=== PATIENT | male | born 1960 | race African-American/Black ===

== ENCOUNTER 2016-09-09 00:34 | Inpatient (IN) | payer OTHER ==
[~2016-09-09] VITALS: Ht 167.6 cm; Wt 60.7 kg
[2016-09-09] VITALS (9 sets, daily range): BP systolic 104–151; BP diastolic 70–87; PULSE 83–130; TEMP 36.4–37.7; O2SAT 92–100; Ht 167.6 cm; Wt 60.7 kg
[~2016-09-09 00:34] MED LIST: BND25 PO; CITA20TA9 PO; CLC100X PO; CLOZ100T PO; MILK OF MAGNESIA PO; TRIF5TAB PO; [UNRECOGNIZED DRUG - CODE] PO
[2016-09-09] MEDS ORDERED: SODIUM CHLORIDE 0.9% 1000ML 500 ML IV STA (00:50)
[2016-09-09] MEDS ORDERED: LORAZEPAM 2 MG/ML 1 ML VIAL IV STA (00:50)
[2016-09-09] MEDS ORDERED: SODIUM CHLORIDE 0.9% 1000ML 1,000 ML IV STA ×2 (00:50→05:21)
--- NOTE | 2016-09-09 01:10 | EMERGENCY ROOM VISIT NOTE ---
History Report prepared by Matthew: Geoff Hall Under the Supervision of: Dr. Watson Pulliam M.D. First contact with patient: 00:44 Chief Complaint: FALL Stated Complaint: FALL/ALTERED MENTAL STATUS History of Present Illness The patient is a 56 year old male who presents to the Emergency Room by EMS with complaints of an constant altered mental status beginning shortly prior to arrival. Per nursing staff, the patient is a prisoner, and was alone in an observation cell today. She states that he was left for awhile and found to be unresponsive upon returning. She notes that the patient was restarted on Clozaril today after being off of it for 9 days. Per care home security, the patient is not completely oriented at baseline, but is currently worse than usual. HPI limited secondary to altered mental status. Source of History: nursing staff, other (care home security) History Limited By: AMS Onset: Shortly prior to arrival Quality: other (altered mental status) Timing: constant Review of Systems ROS unobtainable secondary to altered mental status. Past Medical & Surgical Medical Problems: (1) Encephalopathy Past medical history unobtainable secondary to altered mental status. Family History Family history unobtainable secondary to altered mental status. Social History Smoking Status: Current Every Day Smoker Housing Status: other (incarcerated) Occupation Status: other (incarcerated) Current/Historical Medications Scheduled Clozapine (Clozaril), 100 MG PO BID Clozapine (Clozapine), 200 MG PO BID Clozapine (Clozapine), 200 MG PO HS Clozapine (Clozapine), 200 MG PO DAILY @ 0630 Clozapine (Clozapine), 400 MG PO HS Docusate Sodium (Docusate Sodium), 100 MG PO BID Perphenazine (Trilafon), 16 MG PO HS Propranolol (Inderal), 10 MG PO BID Allergies Coded Allergies: Benztropine (Verified Allergy, Intermediate, muscle spasms, 04/07/16) Haloperidol (Verified Allergy, Unknown, UNKNOWN, 09/09/16) Physical Exam Vital Signs Date Time Temp Pulse Resp B/P Pulse Ox O2 Delivery O2 Flow Rate FiO2 09/09/16 04:09 108 26 98 Diffusion Mask 6.0 09/09/16 02:57 118 18 108/71 94 Room Air 09/09/16 01:43 119 16 136/74 Room Air 09/09/16 00:58 121 09/09/16 00:54 96 Room Air 09/09/16 00:49 36.4 124 22 100/55 96 Room Air Physical Exam GENERAL: Patient is in no acute distress. HEENT: No acute trauma, normocephalic atraumatic, mucous membranes are dry, no nasal congestion, no scleral icterus. Pupils are pinpoint but equal bilaterally. NECK: No stridor, no adenopathy, no meningismus, trachea is midline. LUNGS: Clear to auscultation bilaterally, no wheeze, no rhonchi, breath sounds equal. HEART: Tachycardic with a regular rhythm. No murmurs. ABDOMEN: Soft, nontender, bowel sounds positive, no hernias, no peritonitis. EXTREMITIES: No pedal edema or cellulitis. Both hands are swollen but no gross deformity. Bandages on the fingers consistent with older injuries. No cellulitis. No apparent pain with palpation of either hand. NEUROLOGIC: Confused. Rambling speech. No speech slur. Moving all extremities equally. Seems agitated. SKIN: No rash, no jaundice, no diaphoresis. Medical Decision & Procedures ER Provider Diagnostic Interpretation: CT results per statrad and my review. CT HEAD: Comparison: 04/08/2016. No acute intracranial abnormality. The sinuses are patent. No acute osseous abnormality. CT EXTREMITY LEFT UPPER: Acute impacted minimally displaced fracture through the distal metaphysis of the fifth metacarpal. No evidence of intra-articular extension. No other fractures identified. Degenerative changes of the carpal bones. Three View Right Hand X-ray interpreted by me: No obvious fracture or bony dislocation. Three View Left Hand X-ray interpreted by me: Acute fracture of the distal fifth metacarpal and a possible fracture to the bones of the ulnar wrist. One View Chest X-ray interpreted by me: No CHF, cardiomegaly or pneumonia. No mediastinal widening. Left Wrist X-ray interpreted by me: Ulnar aspect of the wrist has some abnormalities consistent with possible fracture. May be a chip-like fracture off of the proximal fifth metacarpal. Because of the look of the film, a CT scan has been ordered. Laboratory Results 09/09/16 01:05 Red Blood Count 4.82, Mean Corpuscular Volume 85.9, Mean Corpuscular Hemoglobin 29.5, Mean Corpuscular Hemoglobin Concent 34.3, Mean Platelet Volume 10.5, Neutrophils (%) (Auto) 78.2, Lymphocytes (%) (Auto) 17.2, Monocytes (%) (Auto) 4.2, Eosinophils (%) (Auto) 0.0, Basophils (%) (Auto) 0.1, Neutrophils # (Auto) 9.25, Lymphocytes # (Auto) 2.04, Monocytes # (Auto) 0.50, Eosinophils # (Auto) 0.00, Basophils # (Auto) 0.01 09/09/16 01:05 Test 09/09/16 01:05 09/09/16 02:35 09/09/16 03:29 White Blood Count 11.83 K/uL (4.8-10.8) Red Blood Count 4.82 M/uL (4.7-6.1) Hemoglobin 14.2 g/dL (14.0-18.0) Hematocrit 41.4 % (42-52) Mean Corpuscular Volume 85.9 fL (80-100) Mean Corpuscular Hemoglobin 29.5 pg (25-34) Mean Corpuscular Hemoglobin Concent 34.3 g/dl (32-36) Platelet Count 189 K/uL (130-400) Mean Platelet Volume 10.5 fL (7.4-10.4) Neutrophils (%) (Auto) 78.2 % Lymphocytes (%) (Auto) 17.2 % Monocytes (%) (Auto) 4.2 % Eosinophils (%) (Auto) 0.0 % Basophils (%) (Auto) 0.1 % Neutrophils # (Auto) 9.25 K/uL (1.4-6.5) Lymphocytes # (Auto) 2.04 K/uL (1.2-3.4) Monocytes # (Auto) 0.50 K/uL (0.11-0.59) Eosinophils # (Auto) 0.00 K/uL (0-0.5) Basophils # (Auto) 0.01 K/uL (0-0.2) RDW Standard Deviation 44.4 fL (36.4-46.3) RDW Coefficient of Variation 14.1 % (11.5-14.5) Immature Granulocyte % (Auto) 0.3 % Immature Granulocyte # (Auto) 0.03 K/uL (0.00-0.02) Red Blood Cell Morphology Unremarkable Prothrombin Time 10.7 SECONDS (9.0-12.0) Prothromb Time International Ratio 1.0 (0.9-1.1) Activated Partial Thromboplast Time 30.7 SECONDS (21.0-31.0) Partial Thromboplastin Ratio 1.2 Anion Gap 18.0 mmol/L (3-11) Estimated GFR () 102.2 Estimated GFR (Non- 88.1 BUN/Creatinine Ratio 48.7 (10-20) Calcium Level 8.7 mg/dl (8.5-10.1) Total Bilirubin 0.9 mg/dl (0.2-1) Aspartate Amino Transf (AST/SGOT) 227 U/L (15-37) Alanine Aminotransferase (ALT/SGPT) 104 U/L (12-78) Alkaline Phosphatase 67 U/L (45-117) Ammonia 22.0 umol/L (11-32) Total Creatine Kinase 7103 U/L (39-308) Troponin I < 0.015 ng/ml (0-0.045) Total Protein 7.5 gm/dl (6.4-8.2) Albumin 3.6 gm/dl (3.4-5.0) Globulin 3.9 gm/dl (2.5-4.0) Albumin/Globulin Ratio 0.9 (0.9-2) Thyroid Stimulating Hormone (TSH) 0.363 uIu/ml (0.300-4.500) Urine Color YELLOW Urine Appearance CLEAR (CLEAR) Urine pH 5.0 (4.5-7.5) Urine Specific [place] 1.016 (1.000-1.030) Urine Protein NEG (NEG) Urine Glucose (UA) NEG (NEG) Urine Ketones 4+ (NEG) Urine Occult Blood 2+ (NEG) Urine Nitrite NEG (NEG) Urine Bilirubin NEG (NEG) Urine Urobilinogen NEG (NEG) Urine Leukocyte Esterase NEG (NEG) Urine WBC (Auto) 1-5 /hpf (0-5) Urine RBC (Auto) 0-4 /hpf (0-4) Urine Hyaline Casts (Auto) 1-5 /lpf (0-5) Urine Epithelial Cells (Auto) 5-10 /lpf (0-5) Urine Bacteria (Auto) NEG (NEG) Urine Opiates Screen NEG (NEG) Urine Methadone, Qualitative NEG (NEG) Urine Barbiturates NEG (NEG) Urine Phencyclidine (PCP) Level NEG (NEG) Ur Amphetamine/Methamphetamine NEG (NEG) MDMA (Ecstasy) Screen NEG (NEG) Urine Benzodiazepines Screen NEG (NEG) Urine Cocaine Metabolite NEG (NEG) Urine Marijuana (THC) NEG (NEG) Salicylates Level 2.3 mg/dl (2.8-20) Acetaminophen Level < 2 ug/ml (10-30) Ethyl Alcohol mg/dL < 3.0 mg/dl (0-3) Laboratory results reviewed by me. Medications Administered Medications (Trade) Dose Ordered Sig/Coty Route Start Time Stop Time Status Last Admin Dose Admin Sodium Chloride 500 ml @ 999 mls/hr Q31M STAT IV 09/09/16 00:50 09/09/16 01:20 DC 09/09/16 00:50 999 MLS/HR Sodium Chloride (Nss 1000ml) 1,000 ml @ 125 mls/hr Q8H STAT IV 09/09/16 00:50 09/09/16 03:16 DC 09/09/16 01:23 125 MLS/HR Lorazepam (Ativan Inj) 2 mg NOW STAT IV 09/09/16 00:50 09/09/16 00:53 DC 09/09/16 01:22 2 MG ECG Indication: altered mental status Rate (beats per minute): 124 Rhythm: other (not able to be interpreted due to significant artifact) Findings: no ectopy, other (Significant artifact. No obvious ischemia) ED Course 0044: The patient was evaluated in room B9. A complete history and physical exam was performed. 0050: Ordered Ativan Inj 2 mg IV, NSS 1000 mL @ 125 mL/hr IV, NSS 500 mL @ 999 mL/hr IV. 0257: Ordered NSS 500 mL @ 999 mL/hr IV. 0300: Upon reexamination the patient is resting comfortably. I discussed results and treatment plan with the patient. The patient will be evaluated for further management. Medical Decision The patient is a 56 year old male who presents to the ED with complaints of an altered mental status. Differential diagnoses considered include medication reaction, stroke, psychosis, dehydration, infection, electrolyte imbalance, intracranial bleeding, as well as other etiologies were considered. There is a mild leukocytosis which could be consistent with infection or with the stress of his current situation. No anemia. Renal panel testing shows some dehydration, no significant electrolyte abnormality requiring correction. There were some liver enzyme elevations, the bilirubin was not elevated. The patient appears to be in a euthyroid state. Ammonia level is not elevated. Total CK is elevated indicating some mild rhabdomyolysis. There is no coagulopathy. Urine tox is negative. Urinalysis shows dehydration, no signs of infection. Blood culture is pending. Films of both hands were done, there is a distal left fifth metacarpal fracture which is acute. No fracture of the right hand. The left wrist showed some findings along the ulnar aspect, they may have been nonacute findings but I was concerned enough to order a CT scan, the findings of the left wrist appear chronic. Chest film does not show pneumonia or CHF. Brain CT shows no acute bleed or mass effect. EKG shows a tachycardia, I could not interpret the rhythm as there was too much artifact. Cardiac enzyme testing 1 is not suggestive of acute cardiac injury. The patient received IV saline, because of his agitation, he received IV Ativan. This made him sedate and he required some supplemental oxygen, he was resting comfortably though and was no longer agitated. He is dehydrated, he is in mild rhabdomyolysis. He has fractured his left hand- -a splint was placed on the left hand. He is persistently tachycardic. Given the change in mental status and his current situation, admission/observation is warranted. I spoke to case management, the on-call hospitalist was consulted. At this point, the cause for the mental status change is unclear. Consults Time Called: 025 Consulting Physician: Dr. Radha Harrington Returned Call: 0300 Discussed the patient's case. The patient will be evaluated for further management. Impression Primary Impression: Change in mental status Additional Impressions: Dehydration Tachycardia Left hand fracture Critical Care I have personally spent greater than 30 minutes of critical care time in the direct management of this patient. This includes bedside care, interpretation of diagnostic studies, and testing, discussion with consultants, patient, and family members, and other required patient management activities. This 30 minutes is in excess of all separately billable procedures. Scribe Attestation The scribe's documentation has been prepared under my direction and personally reviewed by me in its entirety. I confirm that the note above accurately reflects all work, treatment, procedures, and medical decision making performed by me. Departure Information Dispostion Being Evaluated By Hospitalist Referrals Zohreh GASTELUM (PCP) Patient Instructions [facility] Problem Qualifiers
[2016-09-09 01:22] LABS: HEMATOCRIT 41.4 % (42-52); MEAN CELL VOLUME 85.9 fL (80-100); MEAN CORPUSCULAR HEMOGLOBIN 29.5 pg (25-34); MEAN CORPUSCULAR HGB CONC 34.3 g/dl (32-36); MEAN PLATELET VOLUME 10.5 fL (7.4-10.4); PLATELET COUNT 189 K/uL (130-400); RED BLOOD COUNT 4.82 M/uL (4.7-6.1); WHITE BLOOD COUNT 11.83 K/uL (4.8-10.8)
[2016-09-09 01:35] LABS: PARTIAL THROMBOPLASTIN RATIO 1.2; PROTHROMBIN TIME (PATIENT) 10.7 SECONDS (9.0-12.0)
[2016-09-09 01:40] LABS: ALT/SGPT 104 U/L (12-78); AST/SGOT 227 U/L (15-37); BLOOD UREA NITROGEN 47 mg/dl (7-18); BUN/CREATININE RATIO 48.7 (10-20); CALCIUM 8.7 mg/dl (8.5-10.1); CARBON DIOXIDE 24 mmol/L (21-32); CHLORIDE 99 mmol/L (98-107); CREATININE 0.97 mg/dl (0.60-1.40); GLUCOSE 105 mg/dl (70-99); SODIUM 141 mmol/L (136-145)
[2016-09-09 01:57] LABS: BASO % 0.1 %; BASO ABS # 0.01 K/uL (0-0.2); COMPLETE YES; IG% 0.3 %; LYMPH % 17.2 %; LYMPH ABS # 2.04 K/uL (1.2-3.4); MONO % 4.2 %; NEUT % 78.2 %
[2016-09-09 02:05] LABS: ALB/GLOB RATIO 0.9 (0.9-2); ALKALINE PHOSPHATASE 67 U/L (45-117); THYROID STIMULATING HORMONE 0.363 uIu/ml (0.300-4.500)
[2016-09-09] MEDS ORDERED: PROP10TA7 PO (02:09)
[2016-09-09] MEDS ORDERED: PERP1TAB PO (02:09)
[2016-09-09] MEDS ORDERED: DOCU100C31 PO (02:09)
[2016-09-09] MEDS ORDERED: CLOZ200T PO ×3 (02:15→02:22)
[2016-09-09] MEDS ORDERED: SODIUM CHLORIDE 0.9% 500ML 500 ML IV STA (02:57)
[2016-09-09 03:03] LABS: URINE APPEARANCE CLEAR (CLEAR); URINE BILIRUBIN NEG (NEG); URINE COLOR YELLOW; URINE NITRITE NEG (NEG); URINE SPECIFIC GRAVITY 1.016 (1.000-1.030); UROBILINOGEN NEG (NEG); ZZURINE CULT IF INDIC CATH NO
[2016-09-09 03:09] LABS: MANUAL MICROSCOPIC REQUIRED? NO; REVIEW REQ? NO
[2016-09-09] MEDS ORDERED: LEVALBUTEROL/IPRATROPIUM NEB INH STA (03:40)
[2016-09-09] MEDS ORDERED: KETOROLAC TROMETHAMINE 30 MG/ML VIAL IV PRN (03:45)
[2016-09-09] MEDS ORDERED: ACETAMINOPHEN 325 MG TAB PO PRN (03:45)
[2016-09-09] MEDS ORDERED: OXYCODONE HCL IR 5 MG TAB (IMMEDIATE RELEASE) PO PRN (03:45)
[2016-09-09] MEDS ORDERED: IBUPROFEN 200 MG TAB PO PRN (03:45)
[2016-09-09] MEDS ORDERED: ONDANSETRON INJ 2 MG/ML 2 ML VIAL IV PRN (03:45)
[2016-09-09] MEDS ORDERED: LEVALBUTEROL/IPRATROPIUM NEB INH PRN (03:45)
[2016-09-09] MEDS ORDERED: NITROGLYCERIN 0.4 MG SL PER TAB CHARGE SL PRN (03:45)
[2016-09-09 04:06] LABS: ACETAMINOPHEN < 2 ug/ml (10-30)
[2016-09-09 04:24] LABS: BENZODIAZEPINE, URINE NEG (NEG); COCAINE,URINE NEG (NEG); PHENCYCLIDINE, URINE NEG (NEG)
--- NOTE | 2016-09-09 05:01 | HISTORY & PHYSICAL EXAMINATION ---
DATE OF ADMISSION: 09/09/2016 PRIMARY CARE DOCTOR: ORIANA Bruner Limited history from px secondary to obtunded state. Hx obtained from ERMD and records. CHIEF COMPLAINT: Altered mental status. HISTORY OF PRESENT ILLNESS: Medical history is significant for schizophrenia and ongoing tobacco abuse. As per records the patient was noted to be confused, agitated at the cell today. Possible fall. Clozaril was restarted after being off for 9 days. Patient agitated at the Emergency Room. Received Ativan, currently obtunded. MEDICAL HISTORY: As above. SURGERIES: Could not be obtained. HOME MEDICATIONS: Include; Clozaril, docusate sodium, phenelzine and propranolol. ALLERGIES: TO BENZTROPINE, HALDOL. FAMILY HISTORY: Cannot be obtained. PERSONAL AND SOCIAL HISTORY: Tobacco abuse. Snf inmate. -[place] ethnicity REVIEW OF SYSTEMS: Cannot be reliably obtained. PHYSICAL EXAMINATION: GENERAL: obtunded. Grunts due to pain. VITAL SIGNS: Blood pressure was noted to be 100/55, pulse rate 120 RR 22, T37 sats 96 on room air. HEENT: [place] palpable conjunctivae. Dry mucosa. O2 mask in place SKIN: Normal color. NECK: No JVD. Supple. CHEST: Decreased effort. Occasional wheeze. HEART: Tachycardic. ABDOMEN: Soft. EXTREMITIES: some edema on the L hand. minimal tenderness NEUROLOGIC: Obtunded, miotic pupils. LABORATORIES: Hemoglobin 14, hematocrit 41 white cell count 11.8, platelets 150. Sodium 140, potassium 4, chloride 99, CO2 24, BUN 44, creatinine 0.7, glucose 100, CK 7100. Urine tox; pending. Urine ketones. Occult blood. CT of left upper extremity, possible fracture 5th carpal ASSESSMENT: 1. Encephalopathy hx schizophrenia multifactorial : clozapine overdose clinical dehydration 2. Rhabdomyolysis secondary illness, meds, fall. 3. Abnormal CT of left upper extremity, possible fracture 4. ongoing tobacco abuse PLAN: PCU. Hold neuropsychotropics for now. Ativan prn agitation Follow CPK response to IV fluids. Follow official CT UE result, may need Ortho opinion Nicotine patch p.r.n. DVT prophylaxis, Loveox subQ. Full code. MTDD
[2016-09-09] MEDS ORDERED: LEVALBUTEROL 1.25MG/0.5ML NEB INH STA (05:36)
[2016-09-09] MEDS ORDERED: IPRATROPIUM BROMIDE NEB SOLN 0.02% 2.5 ML VIAL INH STA (05:36)
[2016-09-09] MEDS ORDERED: LEVALBUTEROL 1.25MG/0.5ML NEB INH PRN (05:45)
[2016-09-09] MEDS ORDERED: IPRATROPIUM BROMIDE NEB SOLN 0.02% 2.5 ML VIAL INH PRN (05:45)
[2016-09-09] MEDS: SODIUM CHLORIDE 0.9% 1000ML 1,000 ML IV SCH ×5 (06:04→22:28)
--- NOTE | 2016-09-09 06:30 | DIAGNOSTIC IMAGING REPORT ---
CT HEAD WITHOUT CONTRAST (CT) CLINICAL HISTORY: Change in mental status. Weakness. COMPARISON STUDY: 04/08/2016 TECHNIQUE: Axial CT of the brain is performed from the vertex to the skull base. IV contrast was not administered for this examination. CT DOSE: 651.12 mGy.cm FINDINGS: No intra or extra-axial mass lesions are visualized. There is no CT evidence of acute cortical infarction. There is no evidence of midline shift. There is no acute hemorrhage. No calvarial fractures are visualized. There are minor white matter hypodensities likely on a small vessel basis. There is no evidence of pathologic ventricular dilatation. There is no evidence of acute sinusitis IMPRESSION: No acute intracranial findings Electronically signed by: Benson Gonzalez M.D. 09/09/2016 6:29 AM Dictated Date/Time: 09/09/2016 6:28 AM
--- NOTE | 2016-09-09 06:34 | DIAGNOSTIC IMAGING REPORT ---
RIGHT HAND MIN 3 VIEWS ROUTINE CLINICAL HISTORY: Pain status post trauma. Swelling. COMPARISON: None. DISCUSSION: The study is limited from a positioning standpoint. No acute fractures are visualized. There is mild generalized soft tissue swelling. IMPRESSION: Technically limited study from a positioning standpoint. No acute fractures. Soft tissue swelling. Electronically signed by: Benson Gonzalez M.D. 09/09/2016 6:33 AM Dictated Date/Time: 09/09/2016 6:32 AM
--- NOTE | 2016-09-09 06:36 | DIAGNOSTIC IMAGING REPORT ---
LEFT HAND MIN 3 VIEWS ROUTINE CLINICAL HISTORY: Left hand pain status post trauma COMPARISON: None. DISCUSSION: There is acute fracture of the fifth metatarsal shaft and neck. There is minor angulation at the level of the fifth metacarpal neck. Degenerative changes are present within the wrist. There is dorsal soft tissue swelling. IMPRESSION: Acute fracture the fifth metatarsal carpal neck and shaft Electronically signed by: Benson Gonzalez M.D. 09/09/2016 6:34 AM Dictated Date/Time: 09/09/2016 6:33 AM
--- NOTE | 2016-09-09 06:43 | DIAGNOSTIC IMAGING REPORT ---
LEFT WRIST W/NAVICULAR MIN 3 VIEWS CLINICAL HISTORY: Left wrist pain status post trauma COMPARISON: None. DISCUSSION: There is acute fracture of the fifth metacarpal neck and shaft. Degenerative changes are present within the wrist. There is dorsal soft tissue swelling. IMPRESSION: Acute fracture of the fifth metacarpal neck and shaft. Electronically signed by: Benson Gonzalez M.D. 09/09/2016 6:41 AM Dictated Date/Time: 09/09/2016 6:40 AM
--- NOTE | 2016-09-09 06:45 | DIAGNOSTIC IMAGING REPORT ---
CHEST ONE VIEW PORTABLE CLINICAL HISTORY: Altered mental status. Weakness. Fall. COMPARISON STUDY: No previous studies for comparison. FINDINGS: The cardiac and mediastinal contours are normal. There is no evidence of focal pulmonary consolidation. There is no evidence of failure. No pleural effusions are visualized.[ There is minor interstitial thickening. IMPRESSION: Minor interstitial thickening. No evidence of focal pulmonary consolidation. No evidence of overt failure. Electronically signed by: Benson Gonzalez M.D. 09/09/2016 6:43 AM Dictated Date/Time: 09/09/2016 6:43 AM
--- NOTE | 2016-09-09 07:16 | DIAGNOSTIC IMAGING REPORT ---
CT LEFT HAND AND WRIST NO CONTRAST CT DOSE: 410.64 mGy.cm CLINICAL HISTORY: Severe pain status post trauma. TECHNIQUE: Helical images were acquired in the transverse plane. Sagittal and coronal reformatted images were acquired. COMPARISON STUDY: Conventional radiographic study dated 09/09/2016 FINDINGS: There is acute fracture of the fifth metacarpal neck and diaphysis. There is mild impaction of the fracture site, and 3 mm of maximal displacement. No additional fractures of the hand are visualized. There are degenerative changes at the lunate triquetrum articulation. There is an old small chip fracture arising from the triquetrum. IMPRESSION: 1. Acute mildly impacted fracture involving the fifth carpal neck and distal diaphysis. 2. Degenerative changes within the wrist most pronounced the lunate triquetrum articulation Electronically signed by: Benson Gonzalez M.D. 09/09/2016 7:14 AM Dictated Date/Time: 09/09/2016 7:09 AM
[2016-09-09] MEDS: PROPRANOLOL HCL 10 MG TAB PO SCH ×2 (09:00→21:47)
[2016-09-09] MEDS: DOCUSATE SODIUM 100 MG CAP PO SCH ×2 (09:00→21:00)
[2016-09-09] MEDS: ENOXAPARIN 40 MG/0.4 ML SYR SC SCH (09:05)
[2016-09-09] MEDS: LORAZEPAM INJ 0.5 MG in SYRINGE 0.75 ML IV PRN ×2 (10:17→18:17)
[2016-09-09] MEDS: LORAZEPAM 2 MG/ML 1 ML VIAL IV PRN (12:37)
--- NOTE | 2016-09-09 14:11 | CONSULTATION REPORT ---
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 He is neurovascularly and neurologically intact. No other orthopedic injuries noted. The patient is poorly responsive at interview today. He is in a well-padded splint. He is noted to be neurovascularly intact. His fracture does not need anything surgical at this time and will be just treated in a splint that is approximately 4 weeks. He will follow up as an outpatient. ASSESSMENT: Comminuted intra-articular fracture of fifth metacarpal conservative management splint. Follow up 1 month time.
[2016-09-09 14:21] LABS: BLOOD UREA NITROGEN 29 mg/dl (7-18); BUN/CREATININE RATIO 28.8 (10-20); CALCIUM 8.4 mg/dl (8.5-10.1); CARBON DIOXIDE 26 mmol/L (21-32); CHLORIDE 108 mmol/L (98-107); GLUCOSE 104 mg/dl (70-99); SODIUM 146 mmol/L (136-145)
[2016-09-09] MEDS ORDERED: ALBUT/IPRATROP 3MG/0.5MG NEB 3 ML VIAL INH PRN (14:45)
--- NOTE | 2016-09-09 15:51 | DIAGNOSTIC IMAGING REPORT ---
CHEST ONE VIEW PORTABLE CLINICAL HISTORY: Increased work of breathing. COMPARISON STUDY: Chest radiograph performed earlier today. FINDINGS: The patient is rotated. Elevation/eventration of the right hemidiaphragm is noted. There is no lobar consolidation. There is no evidence of pulmonary edema. Cardiac size is normal. Mediastinal contours are unremarkable. IMPRESSION: 1. No acute findings identified. 2. Rotated study. Electronically signed by: Dave Sanches M.D. 09/09/2016 3:49 PM Dictated Date/Time: 09/09/2016 3:47 PM
--- NOTE | 2016-09-09 18:10 | Progress Note ---
Subjective Date of Service: Sep 09, 2016. Subjective Pt evaluation today including: conversation w/ patient, physical exam, lab review, review of studies, review of inpatient medication list Saw/examined the patient in room 285-2 lethargic, somnolent, difficult to arouse has been agitated this morning; pulling on oxygen and IV site currently restrained with guards at bedside breathing seems slightly labored difficult to ascertain baseline Problem List Medical Problems: (1) Change in mental status Status: Acute (2) Dehydration Status: Acute (3) Left hand fracture Status: Acute (4) Tachycardia Status: Acute Review of Systems Unable to obtain Medications Current Inpatient Medications Medications (Trade) Dose Ordered Sig/Coty Route Start Time Stop Time Status Last Admin Dose Admin Sodium Chloride (Nss 1000ml) 1,000 ml @ 250 mls/hr Q4H IV 09/09/16 06:30 09/10/16 06:29 09/09/16 14:29 250 MLS/HR Enoxaparin Sodium (Lovenox Inj) 40 mg Q24H SC 09/09/16 09:00 10/09/16 08:59 09/09/16 09:05 40 MG Acetaminophen (Tylenol Tab) 325 mg Q6H PRN PO 09/09/16 03:45 10/09/16 03:44 Nitroglycerin (Nitrostat Tab) 0.4 mg UD PRN SL 09/09/16 03:45 10/09/16 03:44 Oxycodone HCl (Roxicodone Immediate Rel Tab) 5 mg Q6H PRN PO 09/09/16 03:45 09/23/16 03:44 Ibuprofen (Advil Tab) 400 mg Q6H PRN PO 09/09/16 03:45 10/09/16 03:44 Ketorolac Tromethamine (Toradol Inj) 30 mg Q6H PRN IV 09/09/16 03:45 09/14/16 03:44 Lorazepam (Ativan Inj) 0.5 mg Q1H PRN IV 09/09/16 03:45 10/09/16 03:44 09/09/16 12:37 0.5 MG Ondansetron HCl (Zofran Inj) 4 mg Q6H PRN IV 09/09/16 03:45 10/09/16 03:44 Docusate Sodium (coLACE CAP) 100 mg BID PO 09/09/16 09:00 10/09/16 08:59 Propranolol HCl 10 mg 10 mg BID PO 09/09/16 09:00 10/09/16 08:59 Lorazepam/Syringe (Ativan Inj/ Syringe) 1 ml @ 1 mls/min Q1H PRN IV 09/09/16 05:30 10/09/16 05:29 09/09/16 10:17 1 MLS/MIN Albuterol/ Ipratropium (Duoneb) 3 ml Q4R PRN INH 09/09/16 14:45 10/09/16 14:44 Objective Vital Signs Date Time Temp Pulse Resp B/P Pulse Ox O2 Delivery O2 Flow Rate FiO2 09/09/16 16:00 37.7 130 20 104/73 92 Room Air 09/09/16 15:45 Room Air Mask 09/09/16 12:09 36.4 83 18 136/72 92 Room Air 09/09/16 11:36 37.0 129 18 122/70 95 09/09/16 08:03 37.1 116 22 151/76 100 Nasal Cannula 4.0 09/09/16 08:00 Mask 4.0 09/09/16 04:59 36.8 110 16 121/87 100 Nasal Cannula 4.0 09/09/16 04:54 36.8 109 22 122/77 99 Mask 6.0 09/09/16 04:09 108 26 98 Diffusion Mask 6.0 09/09/16 02:57 118 18 108/71 94 Room Air 09/09/16 01:43 119 16 136/74 Room Air 09/09/16 00:58 121 09/09/16 00:54 96 Room Air 09/09/16 00:49 36.4 124 22 100/55 96 Room Air Physical Exam General Appearance: no apparent distress, + pertinent finding (somnolent/ lethargic, nearly obtunded - restrained) Respiratory/Chest: no respiratory distress, no accessory muscle use, + decreased breath sounds Cardiovascular: regular rate, rhythm, no edema, no murmur, + tachycardia Abdomen: normal bowel sounds, non tender, soft Extremities: normal inspection, no pedal edema Laboratory Results Last 24 Hours Test 09/09/16 01:05 09/09/16 02:35 09/09/16 03:29 1/18/17 13:30 White Blood Count 11.83 K/uL Red Blood Count 4.82 M/uL Hemoglobin 14.2 g/dL Hematocrit 41.4 % Mean Corpuscular Volume 85.9 fL Mean Corpuscular Hemoglobin 29.5 pg Mean Corpuscular Hemoglobin Concent 34.3 g/dl Platelet Count 189 K/uL Mean Platelet Volume 10.5 fL Neutrophils (%) (Auto) 78.2 % Lymphocytes (%) (Auto) 17.2 % Monocytes (%) (Auto) 4.2 % Eosinophils (%) (Auto) 0.0 % Basophils (%) (Auto) 0.1 % Neutrophils # (Auto) 9.25 K/uL Lymphocytes # (Auto) 2.04 K/uL Monocytes # (Auto) 0.50 K/uL Eosinophils # (Auto) 0.00 K/uL Basophils # (Auto) 0.01 K/uL RDW Standard Deviation 44.4 fL RDW Coefficient of Variation 14.1 % Immature Granulocyte % (Auto) 0.3 % Immature Granulocyte # (Auto) 0.03 K/uL Red Blood Cell Morphology Unremarkable Prothrombin Time 10.7 SECONDS Prothromb Time International Ratio 1.0 Activated Partial Thromboplast Time 30.7 SECONDS Partial Thromboplastin Ratio 1.2 Sodium Level 141 mmol/L 146 mmol/L Potassium Level 4.0 mmol/L mmol/L Chloride Level 99 mmol/L 108 mmol/L Carbon Dioxide Level 24 mmol/L 26 mmol/L Anion Gap 18.0 mmol/L 12.0 mmol/L Blood Urea Nitrogen 47 mg/dl 29 mg/dl Creatinine 0.97 mg/dl 1.00 mg/dl Estimated GFR () 102.2 98.5 Estimated GFR (Non- 88.1 84.9 BUN/Creatinine Ratio 48.7 28.8 Random Glucose 105 mg/dl 104 mg/dl Calcium Level 8.7 mg/dl 8.4 mg/dl Total Bilirubin 0.9 mg/dl Aspartate Amino Transf (AST/SGOT) 227 U/L Alanine Aminotransferase (ALT/SGPT) 104 U/L Alkaline Phosphatase 67 U/L Ammonia 22.0 umol/L Total Creatine Kinase 7103 U/L U/L Troponin I < 0.015 ng/ml Total Protein 7.5 gm/dl Albumin 3.6 gm/dl Globulin 3.9 gm/dl Albumin/Globulin Ratio 0.9 Thyroid Stimulating Hormone (TSH) 0.363 uIu/ml Urine Color YELLOW Urine Appearance CLEAR Urine pH 5.0 Urine Specific [place] 1.016 Urine Protein NEG Urine Glucose (UA) NEG Urine Ketones 4+ Urine Occult Blood 2+ Urine Nitrite NEG Urine Bilirubin NEG Urine Urobilinogen NEG Urine Leukocyte Esterase NEG Urine WBC (Auto) 1-5 /hpf Urine RBC (Auto) 0-4 /hpf Urine Hyaline Casts (Auto) 1-5 /lpf Urine Epithelial Cells (Auto) 5-10 /lpf Urine Bacteria (Auto) NEG Urine Opiates Screen NEG Urine Methadone, Qualitative NEG Urine Barbiturates NEG Urine Phencyclidine (PCP) Level NEG Ur Amphetamine/Methamphetamine NEG MDMA (Ecstasy) Screen NEG Urine Benzodiazepines Screen NEG Urine Cocaine Metabolite NEG Urine Marijuana (THC) NEG Salicylates Level 2.3 mg/dl Acetaminophen Level < 2 ug/ml Ethyl Alcohol mg/dL < 3.0 mg/dl Est Creatinine Clear Calc Drug Dose 70.6 ml/min Test 09/09/16 14:48 Potassium Level 4.0 mmol/L Total Creatine Kinase 5081 U/L Assessment and Plan This is a 56 year old male with PMH of schizophrenia presented with altered mental status and rhabdomyolysis Altered Mental Status * Possibly related to medications * Clozapine was not given for around 9 days as per history * Restarted at a high dose * Patient with mental status change since then * IV Ativan given in the ER and on the floor secondary to agitation * if persistent; may need psych consult * for now, hold psych medications Rhabdomyolysis * Likely from fall * CPK > 700 * IVFs given, CPK down to ~ 5000 * continue fluid resuscitation * monitor kidney function Acute fracture the fifth metacarpal neck and shaft * appreciate ortho input * conservative management - sling DVT ppx * lovenox FULL CODE
[2016-09-10] MEDS: SODIUM CHLORIDE 0.9% 1000ML 1,000 ML IV SCH (02:30)
[2016-09-10 04:39] VITALS: BP 128/76; PULSE 101; TEMP 36.3; O2SAT 94
[2016-09-10] MEDS: LORAZEPAM 2 MG/ML 1 ML VIAL IV PRN (05:38)
[2016-09-10 06:59] LABS: HEMATOCRIT 36.2 % (42-52); MEAN CELL VOLUME 86.8 fL (80-100); MEAN CORPUSCULAR HEMOGLOBIN 29.3 pg (25-34); MEAN CORPUSCULAR HGB CONC 33.7 g/dl (32-36); MEAN PLATELET VOLUME 9.7 fL (7.4-10.4); PLATELET COUNT 164 K/uL (130-400); RED BLOOD COUNT 4.17 M/uL (4.7-6.1); WHITE BLOOD COUNT 13.47 K/uL (4.8-10.8)
[2016-09-10 07:02] VITALS: BP 134/83; PULSE 101; TEMP 36.4; O2SAT 100
[2016-09-10 07:33] LABS: BUN/CREATININE RATIO 25.7 (10-20); CALCIUM 7.8 mg/dl (8.5-10.1); CREATININE 0.6 mg/dl (0.60-1.40); POTASSIUM 3.6 mmol/L (3.5-5.1)
[2016-09-10 07:34] LABS: BASO % 0.1 %; BASO ABS # 0.01 K/uL (0-0.2); COMPLETE YES; IG% 0.5 %; LYMPH ABS # 1.48 K/uL (1.2-3.4); MONO % 7.3 %; NEUT % 81.1 %
[2016-09-10 07:47] LABS: ALB/GLOB RATIO 0.7 (0.9-2)
[2016-09-10] MEDS: DOCUSATE SODIUM 100 MG CAP PO SCH ×2 (08:07→21:03)
[2016-09-10] MEDS: PROPRANOLOL HCL 10 MG TAB PO SCH ×2 (08:09→21:03)
[2016-09-10] MEDS: ENOXAPARIN 40 MG/0.4 ML SYR SC SCH (08:10)
--- NOTE | 2016-09-10 08:36 | Progress Note ---
Subjective Date of Service: Sep 10, 2016. Subjective Pt evaluation today including: conversation w/ patient, physical exam, lab review, review of studies, review of inpatient medication list Saw/examined the patient in room 221 Improved mental status; more awake/alert than yesterday Underlying schizophrenic patient better PO intake this morning No sleep for 4-5 days; has been off of his baseline medications Problem List Medical Problems: (1) Change in mental status Status: Acute (2) Dehydration Status: Acute (3) Left hand fracture Status: Acute (4) Tachycardia Status: Acute Medications Current Inpatient Medications Medications (Trade) Dose Ordered Sig/Coty Route Start Time Stop Time Status Last Admin Dose Admin Enoxaparin Sodium (Lovenox Inj) 40 mg Q24H SC 09/09/16 09:00 10/09/16 08:59 09/10/16 08:10 40 MG Acetaminophen (Tylenol Tab) 325 mg Q6H PRN PO 09/09/16 03:45 10/09/16 03:44 Nitroglycerin (Nitrostat Tab) 0.4 mg UD PRN SL 09/09/16 03:45 10/09/16 03:44 Oxycodone HCl (Roxicodone Immediate Rel Tab) 5 mg Q6H PRN PO 09/09/16 03:45 09/23/16 03:44 Ibuprofen (Advil Tab) 400 mg Q6H PRN PO 09/09/16 03:45 10/09/16 03:44 Ketorolac Tromethamine (Toradol Inj) 30 mg Q6H PRN IV 09/09/16 03:45 09/14/16 03:44 Lorazepam (Ativan Inj) 0.5 mg Q1H PRN IV 09/09/16 03:45 10/09/16 03:44 09/10/16 05:38 0.5 MG Ondansetron HCl (Zofran Inj) 4 mg Q6H PRN IV 09/09/16 03:45 10/09/16 03:44 Docusate Sodium (coLACE CAP) 100 mg BID PO 09/09/16 09:00 10/09/16 08:59 Propranolol HCl 10 mg 10 mg BID PO 09/09/16 09:00 10/09/16 08:59 09/10/16 08:09 10 MG Lorazepam/Syringe (Ativan Inj/ Syringe) 1 ml @ 1 mls/min Q1H PRN IV 09/09/16 05:30 10/09/16 05:29 09/09/16 18:17 1 MLS/MIN Albuterol/ Ipratropium (Duoneb) 3 ml Q4R PRN INH 09/09/16 14:45 10/09/16 14:44 Objective Vital Signs Date Time Temp Pulse Resp B/P Pulse Ox O2 Delivery O2 Flow Rate FiO2 09/10/16 07:02 36.4 101 19 134/83 100 Room Air 09/10/16 04:39 36.3 101 20 128/76 94 Room Air 09/10/16 04:00 Room Air 09/10/16 01:43 Room Air 09/09/16 23:37 36.7 94 22 116/75 95 Room Air 09/09/16 20:00 Room Air 09/09/16 18:47 37.1 124 18 113/75 94 Room Air 09/09/16 16:00 37.7 130 20 104/73 92 Room Air 09/09/16 15:45 Room Air Mask 09/09/16 12:09 36.4 83 18 136/72 92 Room Air 09/09/16 11:36 37.0 129 18 122/70 95 Physical Exam General Appearance: + pertinent finding (more awake/alert; disoriented, confusion, +/- hallucination) Respiratory/Chest: lungs clear, normal breath sounds, no respiratory distress, no accessory muscle use Cardiovascular: regular rate, rhythm, no edema, no murmur Laboratory Results Last 24 Hours Test 09/09/16 13:30 09/09/16 14:48 09/10/16 06:50 Sodium Level 146 mmol/L 150 mmol/L Potassium Level mmol/L 4.0 mmol/L 3.6 mmol/L Chloride Level 108 mmol/L 114 mmol/L Carbon Dioxide Level 26 mmol/L 24 mmol/L Anion Gap 12.0 mmol/L 12.0 mmol/L Blood Urea Nitrogen 29 mg/dl 15 mg/dl Creatinine 1.00 mg/dl 0.60 mg/dl Est Creatinine Clear Calc Drug Dose 70.6 ml/min 120.8 ml/min Estimated GFR () 98.5 132.1 Estimated GFR (Non- 84.9 114.0 BUN/Creatinine Ratio 28.8 25.7 Random Glucose 104 mg/dl 89 mg/dl Calcium Level 8.4 mg/dl 7.8 mg/dl Total Creatine Kinase U/L 5081 U/L 4039 U/L White Blood Count 13.47 K/uL Red Blood Count 4.17 M/uL Hemoglobin 12.2 g/dL Hematocrit 36.2 % Mean Corpuscular Volume 86.8 fL Mean Corpuscular Hemoglobin 29.3 pg Mean Corpuscular Hemoglobin Concent 33.7 g/dl Platelet Count 164 K/uL Mean Platelet Volume 9.7 fL Neutrophils (%) (Auto) 81.1 % Lymphocytes (%) (Auto) 11.0 % Monocytes (%) (Auto) 7.3 % Eosinophils (%) (Auto) 0.0 % Basophils (%) (Auto) 0.1 % Neutrophils # (Auto) 10.92 K/uL Lymphocytes # (Auto) 1.48 K/uL Monocytes # (Auto) 0.99 K/uL Eosinophils # (Auto) 0.00 K/uL Basophils # (Auto) 0.01 K/uL RDW Standard Deviation 44.9 fL RDW Coefficient of Variation 14.3 % Immature Granulocyte % (Auto) 0.5 % Immature Granulocyte # (Auto) 0.07 K/uL Total Bilirubin 0.6 mg/dl Aspartate Amino Transf (AST/SGOT) 155 U/L Alanine Aminotransferase (ALT/SGPT) 84 U/L Alkaline Phosphatase 50 U/L Total Protein 5.7 gm/dl Albumin 2.3 gm/dl Globulin 3.4 gm/dl Albumin/Globulin Ratio 0.7 Assessment and Plan This is a 56 year old male with PMH of schizophrenia presented with altered mental status and rhabdomyolysis Altered Mental Status 09/10 * improved mental status * Closer to baseline as per officers * Better PO intake * has been off of Clozapine since being here * will consult psych to assist in antipsychotic medication doses * Pt. has not slept in 3-4 days as per officers - IV Ativan has not helped, may need Seroquel - will await psych input 09/09 * Possibly related to medications * Clozapine was not given for around 9 days as per history * Restarted at a high dose * Patient with mental status change since then * IV Ativan given in the ER and on the floor secondary to agitation * if persistent; may need psych consult * for now, hold psych medications Rhabdomyolysis 09/10 * CPK down to 4000 * IVFs held due to patient improving his PO intake; monitor CPK levels 09/09 * Likely from fall * CPK > 700 * IVFs given, CPK down to ~ 5000 * continue fluid resuscitation * monitor kidney function Acute fracture the fifth metacarpal neck and shaft * appreciate ortho input * conservative management - sling DVT ppx * lovenox FULL CODE
[2016-09-10 12:00] VITALS: BP 111/71; PULSE 99; TEMP 36.6; O2SAT 93
--- NOTE | 2016-09-10 14:46 | CONSULTATION REPORT ---
DATE OF CONSULTATION: 09/10/2016 IDENTIFYING DATA: Jorge Padilla is a 56-year-old inmate at the [facility] [place] at [facility], who is admitted to the medical floor after a fall, possible head injury and altered mental status. Information is gathered from the patient, the electronic medical record and from his psychiatrist, Dr. Crowe at the skilled nursing. CHIEF COMPLAINT: None stated. Consult requested for medication adjustments. HISTORY OF PRESENT ILLNESS: History is obtained from Dr. Crowe at the skilled nursing, who tells me that Jorge Padilla is a 56-year-old -[place] gentleman with known long-term schizophrenia. He has long been stable on clozapine, although unfortunately has had marginal ANCs periodically, requiring that he come off the medication. He has usually done well on Clozaril and at baseline, Dr. Crowe described him as garrulous and happy. Approximately a week or so ago, the patient's ANC was noted to be low at 1.3, which required holding the medications. They pursued daily ANCs and by the day of admission, it had increased into the 4 range. They therefore restarted Clozaril with an initial dose of 100 b.i.d. and with plans to titrate up quickly over the next week or so. On the day that Clozaril was restarted, the patient was noted to have a fall in his cell, was unresponsive and there was a concern for head injury and so was sent to the emergency room for evaluation. Notably, per Dr. Crowe, the patient immediately decompensated after coming off of Clozaril and was tearful, experienced looseness of associations, would cover himself with food and was not answering questions either at all or appropriately, all symptoms were quite out of character for him. They did start him on Trilafon getting at 8 mg daily to try to compensate while he was off of Clozaril. At the time I see the patient, he is alert and cooperative. He is handcuffed to the bed. There are 2 guards in attendance. He is alert and attentive to my conversation, although does not necessarily make sense. He is not oriented other than to say he knows he is in the hospital, but does not know where. He does not know the year or month. He frequently makes references to past experiences from earlier in his life. He could not recall why he was hospitalized either. The guards at the bedside say that they believe there is some volitional component to this that they believe he could answer more appropriately, but is refusing. CURRENT INPATIENT MEDICATIONS: 1. Lovenox. 2. Colace 100 mg b.i.d. 3. Inderal 10 mg b.i.d. 4. Ativan 1 mg q. 1 hour p.r.n. IV for agitation or anxiety. 5. Roxicodone 5 mg q. 6 hours p.r.n. pain. 6. Toradol 30 mg q. 6 hours IV p.r.n. pain. PAST PSYCHIATRIC HISTORY: As per the HPI. PRIOR MEDICATION TRIALS: Unknown at this time. ALLERGIES: 1. HALDOL. 2. BENZTROPINE. PAST MEDICAL HISTORY: Tobacco use disorder. FAMILY HISTORY: Noncontributory. SUBSTANCE USE HISTORY: Noncontributory. PERSONAL HISTORY: We know only that he has been a long-term inmate at [facility]. MENTAL STATUS EXAMINATION 56-year-old -[place] male with short afro hair, dressed in a hospital gown with handcuffs on both upper extremities to the bed. He appears to have some drooling at the left side of his mouth and there is a used tissue on his chest. He is unable to follow simple commands or answer questions consistently. There are no abnormal muscle movements. His speech is without dysarthria. IMPRESSION: A 56-year-old -[place] inmate from [facility] admitted following a fall and altered mental status. We are consulted to evaluate medications. As per the HPI, Dr. Crowe had taken him off his longstanding Clozaril due to low ANC and in that context quickly decompensated in terms of mental status. They tried to compensate with Trilafon, which was less than effective. At this time, his ANC is 10.92 and at that level, we feel that it would be safe to restart his Clozaril at 100 mg b.i.d. He should have daily ANCs to monitor this since this has been variable in the recent past. We will hold on the Trilafon and hope that he will have a prompt response to the Clozaril, on which he has done well intermediate. The skilled nursing is well familiar with his condition and I would hope that we would get him back to their psychiatric unit as soon as he is medically feasible. Dr. Crowe can be reached for any additional psychiatric information at [phone], extension [phone]. DIAGNOSES: 1. Schizophrenia. 2. Altered mental status. PLAN: Has been reviewed with Dr. Ceci Navarrete. 1. Schizophrenia/altered mental status. a. ANC over 10 today and so, we will restart Clozaril 100 mg b.i.d. b. We will require daily ANCs holding Clozaril for an ANC less than 1.5. c. Continue to hold Trilafon. d. Encourage return to the skilled nursing system as soon as medically stable as they know him and this is a familiar environment. I thank you for allowing us to participate in this man's care.
[2016-09-10 15:41] VITALS: BP 119/77; PULSE 97; TEMP 37.5; O2SAT 95
[2016-09-10] MEDS: CLOZAPINE 100 MG TAB PO SCH (21:03)
[2016-09-11 00:10] VITALS: BP 132/78; PULSE 98; TEMP 37.2; O2SAT 93
[2016-09-11 04:20] VITALS: BP 144/81; PULSE 85; TEMP 37; O2SAT 94
[2016-09-11 07:12] LABS: BASO % 0.1 %; BASO ABS # 0.01 K/uL (0-0.2); COMPLETE YES; EOS % 0.1 %; HEMATOCRIT 37.7 % (42-52); IG% 0.9 %; LYMPH % 8.5 %; LYMPH ABS # 1.21 K/uL (1.2-3.4); MEAN CELL VOLUME 86.5 fL (80-100); MEAN CORPUSCULAR HEMOGLOBIN 29.6 pg (25-34); MEAN CORPUSCULAR HGB CONC 34.2 g/dl (32-36); MEAN PLATELET VOLUME 10.4 fL (7.4-10.4); MONO % 11.9 %; NEUT % 78.5 %; PLATELET COUNT 169 K/uL (130-400); RED BLOOD COUNT 4.36 M/uL (4.7-6.1); WHITE BLOOD COUNT 14.26 K/uL (4.8-10.8)
[2016-09-11 07:35] VITALS: BP 131/86; PULSE 95; TEMP 37.3; O2SAT 95
[2016-09-11 07:37] LABS: BUN/CREATININE RATIO 28.2 (10-20); CALCIUM 7.9 mg/dl (8.5-10.1); CREATININE 0.5 mg/dl (0.60-1.40); POTASSIUM 3.3 mmol/L (3.5-5.1)
[2016-09-11 07:52] LABS: ALB/GLOB RATIO 0.6 (0.9-2)
[2016-09-11] MEDS: DOCUSATE SODIUM 100 MG CAP PO SCH (08:08)
[2016-09-11] MEDS: PROPRANOLOL HCL 10 MG TAB PO SCH (08:09)
[2016-09-11] MEDS: CLOZAPINE 100 MG TAB PO SCH (08:09)
[2016-09-11] MEDS: ENOXAPARIN 40 MG/0.4 ML SYR SC SCH (08:10)
[2016-09-11] MEDS ORDERED: POTASSIUM CHLORIDE 10 MEQ TABCR PO ONE (08:30)
--- NOTE | 2016-09-11 08:42 | Progress Note ---
Subjective Date of Service: Sep 11, 2016. Subjective Pt evaluation today including: conversation w/ patient, physical exam, lab review, review of studies, review of inpatient medication list Saw/examined the patient in room 221 Patient is awake/alert Disoriented, disheveled with food on his gown Left foot is handcuffed to the bed Patient has urinal in place but not urinating As per nursing, he has been uncooperative with using the urinal and other things he is asked to do Good PO intake as per guard Problem List Medical Problems: (1) Change in mental status Status: Acute (2) Dehydration Status: Acute (3) Left hand fracture Status: Acute (4) Tachycardia Status: Acute Medications Current Inpatient Medications Medications (Trade) Dose Ordered Sig/Coty Route Start Time Stop Time Status Last Admin Dose Admin Enoxaparin Sodium (Lovenox Inj) 40 mg Q24H SC 09/09/16 09:00 10/09/16 08:59 09/11/16 08:10 40 MG Acetaminophen (Tylenol Tab) 325 mg Q6H PRN PO 09/09/16 03:45 10/09/16 03:44 Nitroglycerin (Nitrostat Tab) 0.4 mg UD PRN SL 09/09/16 03:45 10/09/16 03:44 Oxycodone HCl (Roxicodone Immediate Rel Tab) 5 mg Q6H PRN PO 09/09/16 03:45 09/23/16 03:44 Ibuprofen (Advil Tab) 400 mg Q6H PRN PO 09/09/16 03:45 10/09/16 03:44 Ketorolac Tromethamine (Toradol Inj) 30 mg Q6H PRN IV 09/09/16 03:45 09/14/16 03:44 Lorazepam (Ativan Inj) 0.5 mg Q1H PRN IV 09/09/16 03:45 10/09/16 03:44 09/10/16 05:38 0.5 MG Ondansetron HCl (Zofran Inj) 4 mg Q6H PRN IV 09/09/16 03:45 10/09/16 03:44 Docusate Sodium (coLACE CAP) 100 mg BID PO 09/09/16 09:00 10/09/16 08:59 09/11/16 08:08 100 MG Propranolol HCl 10 mg 10 mg BID PO 09/09/16 09:00 10/09/16 08:59 09/11/16 08:09 10 MG Lorazepam/Syringe (Ativan Inj/ Syringe) 1 ml @ 1 mls/min Q1H PRN IV 09/09/16 05:30 10/09/16 05:29 09/09/16 18:17 1 MLS/MIN Albuterol/ Ipratropium (Duoneb) 3 ml Q4R PRN INH 09/09/16 14:45 10/09/16 14:44 Clozapine (Clozaril Tab) 100 mg BID PO 09/10/16 21:00 10/10/16 20:59 09/11/16 08:09 100 MG Objective Vital Signs Date Time Temp Pulse Resp B/P Pulse Ox O2 Delivery O2 Flow Rate FiO2 09/11/16 07:35 37.3 95 20 131/86 95 Room Air 09/11/16 04:20 37.0 85 18 144/81 94 Room Air 09/11/16 04:00 Room Air 09/11/16 00:10 37.2 98 18 132/78 93 Room Air 09/11/16 00:00 Room Air 09/10/16 20:00 Room Air 09/10/16 16:00 Room Air 09/10/16 15:41 37.5 97 18 119/77 95 Room Air 09/10/16 12:00 Room Air 09/10/16 12:00 36.6 99 16 111/71 93 Room Air Physical Exam General Appearance: no apparent distress, + pertinent finding (+disoriented; does not answer questions appropriately - at baseline) Respiratory/Chest: no respiratory distress, no accessory muscle use Cardiovascular: regular rate, rhythm, no edema Extremities: normal inspection, no pedal edema Neurologic/Psychiatric: alert (cooperative), + disoriented, + pertinent finding (inappropriate responses) Laboratory Results Last 24 Hours Test 09/11/16 06:32 White Blood Count 14.26 K/uL Red Blood Count 4.36 M/uL Hemoglobin 12.9 g/dL Hematocrit 37.7 % Mean Corpuscular Volume 86.5 fL Mean Corpuscular Hemoglobin 29.6 pg Mean Corpuscular Hemoglobin Concent 34.2 g/dl Platelet Count 169 K/uL Mean Platelet Volume 10.4 fL Neutrophils (%) (Auto) 78.5 % Lymphocytes (%) (Auto) 8.5 % Monocytes (%) (Auto) 11.9 % Eosinophils (%) (Auto) 0.1 % Basophils (%) (Auto) 0.1 % Neutrophils # (Auto) 11.20 K/uL Lymphocytes # (Auto) 1.21 K/uL Monocytes # (Auto) 1.70 K/uL Eosinophils # (Auto) 0.01 K/uL Basophils # (Auto) 0.01 K/uL RDW Standard Deviation 44.4 fL RDW Coefficient of Variation 14.1 % Immature Granulocyte % (Auto) 0.9 % Immature Granulocyte # (Auto) 0.13 K/uL Sodium Level 143 mmol/L Potassium Level 3.3 mmol/L Chloride Level 105 mmol/L Carbon Dioxide Level 27 mmol/L Anion Gap 11.0 mmol/L Blood Urea Nitrogen 14 mg/dl Creatinine 0.50 mg/dl Est Creatinine Clear Calc Drug Dose 145.0 ml/min Estimated GFR () 142.4 Estimated GFR (Non- 122.9 BUN/Creatinine Ratio 28.2 Random Glucose 98 mg/dl Calcium Level 7.9 mg/dl Total Bilirubin 0.6 mg/dl Aspartate Amino Transf (AST/SGOT) 94 U/L Alanine Aminotransferase (ALT/SGPT) 70 U/L Alkaline Phosphatase 62 U/L Total Creatine Kinase 1647 U/L Total Protein 5.8 gm/dl Albumin 2.2 gm/dl Globulin 3.6 gm/dl Albumin/Globulin Ratio 0.6 Assessment and Plan This is a 56 year old male with PMH of schizophrenia presented with altered mental status and rhabdomyolysis Altered Mental Status 09/11 * improved mental status * awake/alert/cooperative * disoriented and inappropriate responses = which is at baseline * Clozapine restarted at 100mg BID * appreciate psych input * ANC is 11.2 * Monitor ANC as well as CPK at halfway 09/10 * improved mental status * Closer to baseline as per officers * Better PO intake * has been off of Clozapine since being here * will consult psych to assist in antipsychotic medication doses * Pt. has not slept in 3-4 days as per officers - IV Ativan has not helped, may need Seroquel - will await psych input 09/09 * Possibly related to medications * Clozapine was not given for around 9 days as per history * Restarted at a high dose * Patient with mental status change since then * IV Ativan given in the ER and on the floor secondary to agitation * if persistent; may need psych consult * for now, hold psych medications Rhabdomyolysis 09/11 * CPK trending down to ~1000 * off of IVFs for 24 hours * repeat CPK in a few days at halfway 09/10 * CPK down to 4000 * IVFs held due to patient improving his PO intake; monitor CPK levels 09/09 * Likely from fall * CPK > 700 * IVFs given, CPK down to ~ 5000 * continue fluid resuscitation * monitor kidney function Acute fracture the fifth metacarpal neck and shaft * appreciate ortho input * conservative management - sling DVT ppx * lovenox FULL CODE
--- NOTE | 2016-09-11 08:48 | Discharge Instructions ---
Discharge Instructions Admission Reason for Admission: Encephalopathy Discharge Discharge Diagnosis / Problem: Schizophrenia; medication side effect, encephalopathy Discharge Goals Goal(s): Diagnostic testing, Therapeutic intervention Activity Recommendations Activity Limitations: resume your previous activity . Instructions / Follow-Up Instructions / Follow-Up Please have ANC rechecked in 2-3 days Patient will be restarted on Clozapine 100mg BID; will d/c Trilafon CPK levels should be redrawn in 2-3 days to assure improvement Current Hospital Diet Patient's current hospital diet: Regular Diet Discharge Diet Recommended Diet: Regular Diet Pending Studies Studies pending at discharge: no Medical Emergencies . Who to Call and When: Medical Emergencies: If at any time you feel your situation is an emergency, please call 911 immediately. . Non-Emergent Contact Non-Emergency issues call your: Specialist (Psychiatry) . . "Provider Documentation" section prepared by Anne Cifuentes. VTE Core Measure Inpt VTE Proph given/why not?: Enoxaparin (Lovenox)SQ
--- NOTE | 2016-09-11 08:50 | Discharge Summary ---
Discharge Summary Admission Date: Sep 09, 2016 at 03:16 Discharge Date: Sep 11, 2016 Discharge Disposition: Home Principal Diagnosis: Schizophrenia Encephalopathy Medication Side Effect Medication Reconciliation Continued Medications: Clozapine (Clozaril) 100 Mg Tab 100 MG PO BID LAST DOSE 09/11/16 @ 0630 Docusate Sodium (Docusate Sodium) 100 Mg Cap 100 MG PO BID Propranolol (Inderal) 10 Mg Tab 10 MG PO BID Discontinued Medications: Clozapine (Clozapine) 200 Mg Tab 200 MG PO BID START 09/12/16 @ 0630 / LAST DOSE 09/14/16 @ 1830 Clozapine (Clozapine) 200 Mg Tab 200 MG PO HS TAKE 1 TAB ORALLY AT HS WITH 200MG = 400MG TOTAL BEGIN 09/15/16 THROUGH 09/17/16 Clozapine (Clozapine) 200 Mg Tab 200 MG PO DAILY @ 0630 TO BEGIN 09/15/16 Clozapine (Clozapine) 200 Mg Tab 400 MG PO HS TAKE 2 TABS ORALLY AT BEDTIME WITH 200MG = 600MG TOTAL TO BEGIN 09/18/16 Perphenazine (Trilafon) 8 Mg Tab 16 MG PO HS Admission Information HPI (per Admitting provider): DATE OF ADMISSION: 09/09/2016 PRIMARY CARE DOCTOR: ORIANA Collier history from px secondary to obtunded state. Hx obtained from ERMD and records. CHIEF COMPLAINT: Altered mental status. HISTORY OF PRESENT ILLNESS: Medical history is significant for schizophrenia and ongoing tobacco abuse. As per records the patient was noted to be confused, agitated at the cell today. Possible fall. Clozaril was restarted after being off for 9 days. Patient agitated at the Emergency Room. Received Ativan, currently obtunded. MEDICAL HISTORY: As above. SURGERIES: Could not be obtained. HOME MEDICATIONS: Include; Clozaril, docusate sodium, phenelzine and propranolol. ALLERGIES: TO BENZTROPINE, HALDOL. FAMILY HISTORY: Cannot be obtained. PERSONAL AND SOCIAL HISTORY: Tobacco abuse. Nursing Home inmate. -[place] ethnicity REVIEW OF SYSTEMS: Cannot be reliably obtained. PHYSICAL EXAMINATION: GENERAL: obtunded. Grunts due to pain. VITAL SIGNS: Blood pressure was noted to be 100/55, pulse rate 120 RR 22, T37 sats 96 on room air. HEENT: [place] palpable conjunctivae. Dry mucosa. O2 mask in place SKIN: Normal color. NECK: No JVD. Supple. CHEST: Decreased effort. Occasional wheeze. HEART: Tachycardic. ABDOMEN: Soft. EXTREMITIES: some edema on the L hand. minimal tenderness NEUROLOGIC: Obtunded, miotic pupils. LABORATORIES: Hemoglobin 14, hematocrit 41 white cell count 11.8, platelets 150. Sodium 140, potassium 4, chloride 99, CO2 24, BUN 44, creatinine 0.7, glucose 100, CK 7100. Urine tox; pending. Urine ketones. Occult blood. CT of left upper extremity, possible fracture 5th carpal ASSESSMENT: 1. Encephalopathy hx schizophrenia multifactorial : clozapine overdose clinical dehydration 2. Rhabdomyolysis secondary illness, meds, fall. 3. Abnormal CT of left upper extremity, possible fracture 4. ongoing tobacco abuse PLAN: PCU. Hold neuropsychotropics for now. Ativan prn agitation Follow CPK response to IV fluids. Follow official CT UE result, may need Ortho opinion Nicotine patch p.r.n. DVT prophylaxis, Loveox subQ. Full code. Hospital Course This is a 56 year old male with PMH of schizophrenia presented with altered mental status and rhabdomyolysis Altered Mental Status 09/11 * improved mental status * awake/alert/cooperative * disoriented and inappropriate responses = which is at baseline * Clozapine restarted at 100mg BID * appreciate psych input * ANC is 11.2 * Monitor ANC as well as CPK at shelter 09/10 * improved mental status * Closer to baseline as per officers * Better PO intake * has been off of Clozapine since being here * will consult psych to assist in antipsychotic medication doses * Pt. has not slept in 3-4 days as per officers - IV Ativan has not helped, may need Seroquel - will await psych input 09/09 * Possibly related to medications * Clozapine was not given for around 9 days as per history * Restarted at a high dose * Patient with mental status change since then * IV Ativan given in the ER and on the floor secondary to agitation * if persistent; may need psych consult * for now, hold psych medications Rhabdomyolysis 09/11 * CPK trending down to ~1000 * off of IVFs for 24 hours * repeat CPK in a few days at shelter 09/10 * CPK down to 4000 * IVFs held due to patient improving his PO intake; monitor CPK levels 09/09 * Likely from fall * CPK > 700 * IVFs given, CPK down to ~ 5000 * continue fluid resuscitation * monitor kidney function Acute fracture the fifth metacarpal neck and shaft * appreciate ortho input * conservative management - sling DVT ppx * lovenox FULL CODE Total time spent on discharge = 40 minutes This includes examination of the patient, discharge planning, medication reconciliation, and communication with other providers. Discharge Instructions Please have ANC rechecked in 2-3 days Patient will be restarted on Clozapine 100mg BID; will d/c Trilafon CPK levels should be redrawn in 2-3 days to assure improvement
[2016-09-11 11:20] VITALS: BP 132/84; PULSE 94; TEMP 36.6; O2SAT 95
[2016-09-11 12:38] VITALS: BP 132/84; PULSE 94; TEMP 36.6; O2SAT 95
--- NOTE | 2016-09-11 12:46 | Psychiatric Progress Notes ---
Psychiatric Progress Note Date of Service Sep 11, 2016. Notes ID: Patient reviewed with liaison nurse and MICA Luque who completed initial consultation 09/10/16. Clozaril was continued as ANC improved (though infection also noted). Custodial records/log of symptoms reviewed. CC: "[place] job [place] since [place]"m in [place]" HPI: seen cuffed with 2 guards at bedside, dry mouth noted. Patient appeared tired. Some speech was rambling, guard states was having more oriented conversation with him earlier/known to him, ongoing concern about some feigning of symptoms. Patient has been compliant in hospital and CPK improving. Test 09/09/16 01:05 09/09/16 02:35 09/09/16 03:29 09/09/16 13:30 White Blood Count 11.83 H Red Blood Count 4.82 Hemoglobin 14.2 Hematocrit 41.4 L Mean Corpuscular Volume 85.9 Mean Corpuscular Hemoglobin 29.5 Mean Corpuscular Hemoglobin Concent 34.3 Platelet Count 189 Mean Platelet Volume 10.5 H Neutrophils (%) (Auto) 78.2 Lymphocytes (%) (Auto) 17.2 Monocytes (%) (Auto) 4.2 Eosinophils (%) (Auto) 0.0 Basophils (%) (Auto) 0.1 Neutrophils # (Auto) 9.25 H Lymphocytes # (Auto) 2.04 Monocytes # (Auto) 0.50 Eosinophils # (Auto) 0.00 Basophils # (Auto) 0.01 RDW Standard Deviation 44.4 RDW Coefficient of Variation 14.1 Immature Granulocyte % (Auto) 0.3 Immature Granulocyte # (Auto) 0.03 H Red Blood Cell Morphology Unremarkable Prothrombin Time 10.7 Prothrombin Time INR 1.0 PTT 30.7 Partial Thromboplastin Ratio 1.2 Total Bilirubin 0.9 Aspartate Amino Transferase (AST) 227 H Alanine Aminotransferase (ALT) 104 H Alkaline Phosphatase 67 Ammonia 22.0 Troponin I < 0.015 Total Protein 7.5 Albumin 3.6 Globulin 3.9 Albumin/Globulin Ratio 0.9 Thyroid Stimulating Hormone (TSH) 0.363 Urine Color YELLOW Urine Appearance CLEAR Urine pH 5.0 Urine Specific [place] 1.016 Urine Protein NEG Urine Glucose (UA) NEG Urine Ketones 4+ H Urine Occult Blood 2+ H Urine Nitrite NEG Urine Bilirubin NEG Urine Urobilinogen NEG Urine Leukocyte Esterase NEG Urine WBC (Auto) 1-5 Urine RBC (Auto) 0-4 Urine Hyaline Casts (Auto) 1-5 Urine Epithelial Cells (Auto) 5-10 H Urine Bacteria (Auto) NEG Urine Opiates Screen NEG Urine Methadone, Qualitative NEG Urine Barbiturates NEG Urine Phencyclidine (PCP) Level NEG Ur Amphetamine/Methamphetamine NEG MDMA (Ecstasy) Screen NEG Urine Benzodiazepines Screen NEG Urine Cocaine Metabolite NEG Urine Marijuana (THC) NEG Salicylates Level 2.3 L Acetaminophen Level < 2 L Ethyl Alcohol mg/dL < 3.0 Sodium Level 146 H Chloride Level 108 H Carbon Dioxide Level 26 Anion Gap 12.0 H Blood Urea Nitrogen 29 H Creatinine 1.00 Est Creatinine Clear Calc Drug Dose 70.6 Estimated GFR () 98.5 Estimated GFR (Non- 84.9 BUN/Creatinine Ratio 28.8 H Random Glucose 104 H Calcium Level 8.4 L Test 09/09/16 14:48 09/10/16 06:50 09/11/16 06:32 Potassium Level 4.0 3.6 3.3 L Total Creatine Kinase 5081 H 4039 H 1647 H White Blood Count 13.47 H 14.26 H Red Blood Count 4.17 L 4.36 L Hemoglobin 12.2 L 12.9 L Hematocrit 36.2 L 37.7 L Mean Corpuscular Volume 86.8 86.5 Mean Corpuscular Hemoglobin 29.3 29.6 Mean Corpuscular Hemoglobin Concent 33.7 34.2 Platelet Count 164 169 Mean Platelet Volume 9.7 10.4 Neutrophils (%) (Auto) 81.1 78.5 Lymphocytes (%) (Auto) 11.0 8.5 Monocytes (%) (Auto) 7.3 11.9 Eosinophils (%) (Auto) 0.0 0.1 Basophils (%) (Auto) 0.1 0.1 Neutrophils # (Auto) 10.92 H 11.20 H Lymphocytes # (Auto) 1.48 1.21 Monocytes # (Auto) 0.99 H 1.70 H Eosinophils # (Auto) 0.00 0.01 Basophils # (Auto) 0.01 0.01 RDW Standard Deviation 44.9 44.4 RDW Coefficient of Variation 14.3 14.1 Immature Granulocyte % (Auto) 0.5 0.9 Immature Granulocyte # (Auto) 0.07 H 0.13 H Sodium Level 150 H 143 Chloride Level 114 H 105 Carbon Dioxide Level 24 27 Anion Gap 12.0 H 11.0 Blood Urea Nitrogen 15 14 Creatinine 0.60 # 0.50 L Est Creatinine Clear Calc Drug Dose 120.8 145.0 Estimated GFR () 132.1 142.4 Estimated GFR (Non- 114.0 122.9 BUN/Creatinine Ratio 25.7 H 28.2 H Random Glucose 89 98 Calcium Level 7.8 L 7.9 L Total Bilirubin 0.6 0.6 Aspartate Amino Transferase (AST) 155 H 94 H Alanine Aminotransferase (ALT) 84 H 70 Alkaline Phosphatase 50 62 Total Protein 5.7 #L 5.8 L Albumin 2.3 L 2.2 L Globulin 3.4 3.6 Albumin/Globulin Ratio 0.7 L 0.6 L ROS: sedation noted, patient denied pain currently, hand wrapped following fall MSE: sedated, thoughts disorganized with poorly articulated speech, did not appear to be responding to internal stimuli, denied benavidez or SI Imp: schizophrenia Plan: Clozaril with monitoring, Trilafon held here, will return to group home when medically cleared with ongoing psych care and monitoring.
[2016-09-24] MEDS ORDERED: ZYPODT5 PO (14:46)
[2016-09-24] MEDS ORDERED: ATV/1 PO ×2 (14:46)
[2016-09-24] MEDS ORDERED: OLAN15TA2 PO (14:50)
== END 2016-09-11 14:05 | disposition home or self-care (01) | DRG 885 ==
LOC: ENRESERVDT → ENRESERVTM → CANRESERV → EDBD 00:34 → C.EDB 00:36 → C.MED 03:16 → EDBEDREQ 03:30 → C.2T 16:01
PROVIDERS: ADMIT Internal Medicine; ATTEND Family Medicine
DX: F20.9 Schizophrenia, unspecified (principal); G93.40 Encephalopathy, unspecified; M62.82 Rhabdomyolysis; E86.0 Dehydration; F17.210 Nicotine dependence, cigarettes, uncomplicated; T42.4X1A Poisoning by benzodiazepines, accidental (unintentional), initial encounter; Y92.149 Unspecified place in prison as the place of occurrence of the external cause; W19.XXXA Unspecified fall, initial encounter; T50.905A Adverse effect of unspecified drugs, medicaments and biological substances, initial encounter; S62.327A Displaced fracture of shaft of fifth metacarpal bone, left hand, initial encounter for closed fracture; S62.337A Displaced fracture of neck of fifth metacarpal bone, left hand, initial encounter for closed fracture; R00.0 Tachycardia, unspecified; Z79.899 Other long term (current) drug therapy

== ENCOUNTER → 2016-09-15 | Outpatient (CLI) | payer OTHER ==
[~2016-09-15] MED LIST changes: +ATV/1 PO; -BND25 PO; -CITA20TA9 PO; -CLC100X PO; +DOCU100C31 PO; -MILK OF MAGNESIA PO; +OLAN15TA2 PO; +PROP10TA7 PO; -TRIF5TAB PO; +ZYPODT5 PO; -[UNRECOGNIZED DRUG - CODE] PO
[2016-09-15 13:59] LABS: HEMATOCRIT 39.3 % (42-52); MEAN CELL VOLUME 86.8 fL (80-100); MEAN CORPUSCULAR HEMOGLOBIN 28.9 pg (25-34); MEAN PLATELET VOLUME 10.5 fL (7.4-10.4); PLATELET COUNT 309 K/uL (130-400); RED BLOOD COUNT 4.53 M/uL (4.7-6.1); WHITE BLOOD COUNT 16.14 K/uL (4.8-10.8)
[2016-09-15 14:08] LABS: MEAN CORPUSCULAR HGB CONC 33.3 g/dl (32-36)
[2016-09-15 14:09] LABS: ALT/SGPT 67 U/L (12-78); BLOOD UREA NITROGEN 25 mg/dl (7-18); BUN/CREATININE RATIO 33.1 (10-20); CALCIUM 8.8 mg/dl (8.5-10.1); CARBON DIOXIDE 24 mmol/L (21-32); CHLORIDE 110 mmol/L (98-107); CREATININE 0.74 mg/dl (0.60-1.40); GLUCOSE 90 mg/dl (70-99); POTASSIUM 3.9 mmol/L (3.5-5.1); SODIUM 148 mmol/L (136-145)
[2016-09-15 14:23] LABS: ALB/GLOB RATIO 0.7 (0.9-2); ALKALINE PHOSPHATASE 57 U/L (45-117); AST/SGOT 68 U/L (15-37)
[2016-09-15 14:24] LABS: BASO % 0.2 %; BASO ABS # 0.03 K/uL (0-0.2); COMPLETE YES; EOS % 0.1 %; IG% 2.2 %; LYMPH % 21.7 %; MONO % 7.5 %; NEUT % 68.3 %
--- NOTE | 2016-09-18 12:01 | CODING QUERY NO DIAGNOSIS ---
TREATMENT RENDERED WITHOUT A DIAGNOSIS To promote full compliance with coding requirements relating to patient care, physician participation is requested in all cases of boat dispatcher uncertainty. Please assist us with providing a diagnosis/symptom for the test(s) below: A diagnosis/symptom was not documented on your Order. A valid diagnosis/symptom is required to bill all insurances. Please remember that we are unable to code a diagnosis of rule out, probable, possible, questionable, or suspected. Tests that require a diagnosis: * CMP DIAGNOSIS: * CREATINE PHOSPHOKINASE DIAGNOSIS: * TSH DIAGNOSIS: * CBC W/ AUTO DIFF DIAGNOSIS: Provider Signature: Date: Thank you Bridget Figueredo [employer] Information Management Once completed, please kindly fax back to [phone] For questions please call [phone]
== END | disposition home or self-care (01) ==
LOC: C.LABSPEC 09:42
DX: Z00.00 Encounter for general adult medical examination without abnormal findings (principal)

== ENCOUNTER 2016-09-16 11:56 | Inpatient (IN) | payer OTHER ==
[~2016-09-16] VITALS: Ht 177.8 cm; Wt 68.4 kg
[~2016-09-16 11:56] MED LIST changes: -ATV/1 PO; -OLAN15TA2 PO; -ZYPODT5 PO
[2016-09-16] MEDS ORDERED: SODIUM CHLORIDE 0.9% 1000ML 1,000 ML IV ONE (12:40)
--- NOTE | 2016-09-16 13:19 | DIAGNOSTIC IMAGING REPORT ---
CHEST ONE VIEW PORTABLE CLINICAL HISTORY: Sepsis. Shortness of breath. COMPARISON STUDY: Chest radiograph September 09, 2016. FINDINGS: There is no pneumothorax or pleural effusion. Cardiac size is normal. Mediastinal contours are normal. Interstitial thickening with patchy opacities within the lower lungs, right greater than left, have developed. IMPRESSION: Interval development of interstitial thickening and patchy bilateral opacities, right greater than left. The findings favor an infectious process. Pulmonary edema could appear similar although is considered less likely. Electronically signed by: Dave Sanches M.D. 09/16/2016 1:17 PM Dictated Date/Time: 09/16/2016 1:14 PM
[2016-09-16] MEDS ORDERED: VANCOMYCIN INJ 1,000 MG in SODIUM CHLORIDE 0.9% 250ML 250 ML IV STA (13:21)
[2016-09-16] MEDS ORDERED: SODIUM CHLORIDE 0.9% 1000ML 1,000 ML IV STA (13:21)
[2016-09-16] MEDS ORDERED: PIPERACILLIN/TAZOBACTAM 4.5 GM/100ML D5W IV STA (13:21)
[2016-09-16] MEDS ORDERED: LEVAQUIN 750MG / 150ML D5W IV ONE (13:30)
--- NOTE | 2016-09-16 13:52 | EMERGENCY ROOM VISIT NOTE ---
History Report prepared by Dontaiboliver: Sage Ojeda Under the Supervision of: Dr. Eric Orozco M.D. First contact with patient: 12:25 Chief Complaint: RESPIRATORY PROBLEMS Stated Complaint: Short of breath, possible aspiration Nursing Triage Summary: Patient arrived via ALS from [facility] with complaints of SOB and O2 sats were 80's at [facility] [place]. [facility] attempted to give patient Ensure this morning and they thought he may have aspirated. EMS stated patients sats were 95% on room air on ride into ER. Patient arrived with ensure around mouth and in his valdes. Patient was here recently for SOB. Per [facility] guards the patient is at his baseline, which includes mumbling frequently and unable to interpret what he is saying. Per EMS the patiet has not been eating/drinking for several days, and recently stopped taking Clozaril for his schizophrenia. History of Present Illness The patient is a 56 year old male who presents to the Emergency Room with complaints of a possible acute aspiration that occurred earlier today. The patient is a prisoner at [facility]. The patient appeared to have aspirated on Ensure at the snf. He has since appeared more short of breath than baseline. Nursing notes indicate that the patient's mouth and valdes contained Ensure upon arrival. As per his correction's officers, the patient is at baseline in terms of mumbling his speech. O2 saturation was 95% on RA upon arrival, per nursing notes. The patient was in the ED recently for shortness of breath. Source of History: patient, nursing staff, other (COs) Onset: earlier today Position: other (lungs) Quality: other (possible aspiration) Timing: other (acute) Associated Symptoms: + SOB Review of Systems See HPI for pertinent positives & negatives. A total of 10 systems reviewed and were otherwise negative. Past Medical & Surgical Medical Problems: (1) Aspiration pneumonia (2) Encephalopathy (3) Schizophrenia (4) Sepsis (5) Tobacco abuse Family History Patient reports no known family medical history. Social History Smoking Status: Unknown if Ever Smoked Housing Status: other Occupation Status: other Current/Historical Medications Scheduled Clozapine (Clozaril), 100 MG PO BID Docusate Sodium (Docusate Sodium), 100 MG PO BID Propranolol (Inderal), 10 MG PO BID Allergies Coded Allergies: Benztropine (Verified Allergy, Intermediate, muscle spasms, 09/16/16) Haloperidol (Verified Allergy, Unknown, UNKNOWN, 09/16/16) Physical Exam Vital Signs Date Time Temp Pulse Resp B/P Pulse Ox O2 Delivery O2 Flow Rate FiO2 09/16/16 15:01 138 22 130/100 96 Nasal Cannula 2.0 09/16/16 14:18 123 30 100 Room Air 09/16/16 14:01 125 30 127/82 100 Room Air 09/16/16 12:17 127 09/16/16 12:10 95 Room Air 09/16/16 12:10 95 Room Air 09/16/16 12:10 36.9 127 32 152/97 95 Room Air Physical Exam GENERAL: Patient is frothing at the mouth and not answering questions. HEAD: Normocephalic atraumatic EYES: Ocular movements intact pupils equal and react to light OROPHARYNX mucous membranes are moist no exudates present no erythema or edema present. Frothing at the mouth. NECK: Supple no nuchal rigidity CHEST: Good equal expansion LUNGS: Clear and equal to auscultation CARDIAC: Normal S1 and S2 ABDOMEN: Soft nontender no guarding BACK: No CVA tenderness EXTREMITIES: No pain upon palpation normal muscle strength in all groups no clubbing cyanosis or edema NEURO: Patient is following commands is answering questions appropriately. Alert and oriented x3 Cranial Nerves 2-12 grossly intact Medical Decision & Procedures ER Provider Diagnostic Interpretation: X-ray results as stated below per interpretation by me and the radiologist: CHEST ONE VIEW PORTABLE CLINICAL HISTORY: Sepsis. Shortness of breath. COMPARISON STUDY: Chest radiograph September 09, 2016. FINDINGS: There is no pneumothorax or pleural effusion. Cardiac size is normal. Mediastinal contours are normal. Interstitial thickening with patchy opacities within the lower lungs, right greater than left, have developed. IMPRESSION: Interval development of interstitial thickening and patchy bilateral opacities, right greater than left. The findings favor an infectious process. Pulmonary edema could appear similar although is considered less likely. Electronically signed by: Dave Sanches M.D. 09/16/2016 1:17 PM Dictated Date/Time: 09/16/2016 1:14 PM Laboratory Results Test 09/16/16 13:41 09/16/16 13:43 09/16/16 14:35 Bedside Lactic Acid Venous 2.93 mmol/L (0.90-1.70) Immature Granulocyte % (Auto) 0.8 % White Blood Count 32.00 K/uL (4.8-10.8) Red Blood Count 4.60 M/uL (4.7-6.1) Hemoglobin 13.6 g/dL (14.0-18.0) Hematocrit 40.0 % (42-52) Mean Corpuscular Volume 87.0 fL (80-100) Mean Corpuscular Hemoglobin 29.6 pg (25-34) Mean Corpuscular Hemoglobin Concent 34.0 g/dl (32-36) Platelet Count 304 K/uL (130-400) Mean Platelet Volume 10.4 fL (7.4-10.4) Neutrophils (%) (Auto) 86.1 % Lymphocytes (%) (Auto) 9.4 % Monocytes (%) (Auto) 3.5 % Eosinophils (%) (Auto) 0.0 % Basophils (%) (Auto) 0.2 % Neutrophils # (Auto) 27.55 K/uL (1.4-6.5) Lymphocytes # (Auto) 3.02 K/uL (1.2-3.4) Monocytes # (Auto) 1.11 K/uL (0.11-0.59) Eosinophils # (Auto) 0.00 K/uL (0-0.5) Basophils # (Auto) 0.05 K/uL (0-0.2) Immature Granulocyte # (Auto) 0.27 K/uL (0.00-0.02) Total Bilirubin 0.7 mg/dl (0.2-1) Aspartate Amino Transf (AST/SGOT) 57 U/L (15-37) Alanine Aminotransferase (ALT/SGPT) 66 U/L (12-78) Alkaline Phosphatase 66 U/L (45-117) Total Protein 7.5 gm/dl (6.4-8.2) Albumin 2.6 gm/dl (3.4-5.0) Globulin 4.9 gm/dl (2.5-4.0) Albumin/Globulin Ratio 0.5 (0.9-2) Chemistry Specimen Hemolysis Prothrombin Time 10.8 SECONDS (9.0-12.0) Prothromb Time International Ratio 1.0 (0.9-1.1) Activated Partial Thromboplast Time 33.3 SECONDS (21.0-31.0) Partial Thromboplastin Ratio 1.3 Labs reviewed by ED physician. Medications Administered Medications (Trade) Dose Ordered Sig/Coty Route Start Time Stop Time Status Last Admin Dose Admin Sodium Chloride (Nss 1000ml) 1,000 ml @ 999 mls/hr Q1H1M ONCE IV 09/16/16 12:40 09/16/16 13:40 DC 09/16/16 13:55 999 MLS/HR Piperacillin Sod/ Tazobactam Sod 4.5 gm 4.5 gm NOW STAT IV 09/16/16 13:21 09/16/16 13:23 DC 09/16/16 17:23 4.5 GM Vancomycin HCl/ Sodium Chloride (Vancomycin Inj/ Nss 250ml) 270 ml @ 125 mls/hr NOW STAT IV 09/16/16 13:21 09/16/16 15:30 DC 09/16/16 14:24 125 MLS/HR Levofloxacin 750 mg 750 mg NOW ONCE IV 09/16/16 13:30 09/16/16 13:31 DC 09/16/16 13:55 750 MG Sodium Chloride (Nss 1000ml) 1,000 ml @ 999 mls/hr Q1H1M STAT IV 09/16/16 13:21 09/16/16 14:21 DC 09/16/16 15:00 999 MLS/HR Albuterol/ Ipratropium (Duoneb) 12 ml ONE ONCE INH 09/16/16 14:00 09/16/16 14:01 DC 09/16/16 14:18 12 ML ED Course 1240: NSS 1000 ml @ 999 mls/hr. 1321: NSS 1000 ml @ 999 mls/hr, Vancomycin HCl 1000 mg / NSS 270 ml @ 125 mls/hr , Zosyn 4.5 gm IV. 1330: Levaquin / D5w 750 mg IV. 1345: Past medical records reviewed. The patient was evaluated in room B8. A complete history and physical examination was performed. 1400: DuoNeb 12 ml INH. 1455: Discussed the case with Dr. Augustin, [facility] Hospitalist. The patient will be evaluated. Medical Decision Etiologies such as infections, reactive airway disease, pneumonia, pneumothorax , COPD, CHF, cardiac ischemia, pulmonary embolism, musculoskeletal, gastrointestinal, as well as others were entertained. This is a 56-year-old male who presents emergency department after large amount of aspiration. The patient has a very high elevation in his white blood count and does appear to have pneumonia on his chest x-ray. Based on these findings blood cultures were obtained and the patient was started on antibiotics. I did discuss the case with the hospitalist service who agreed to admit the patient. Patient was in agreement with the treatment plan. Consults Time Called: 1445 Consulting Physician: Jasmeet Almonte Hospitalist Returned Call: [phone]: Discussed the case with Jasmeet Almonte Hospitalally. The patient will be evaluated. Impression Primary Impression: Sepsis Additional Impression: Aspiration pneumonia Critical Care I have personally spent greater than 90 minutes of critical care time in the direct management of this patient. This includes bedside care, interpretation of diagnostic studies, and testing, discussion with consultants, patient, and family members, and other required patient management activities. This 90 minutes is in excess of all separately billable procedures. Scribe Attestation The scribe's documentation has been prepared under my direction and personally reviewed by me in its entirety. I confirm that the note above accurately reflects all work, treatment, procedures, and medical decision making performed by me. Departure Information Dispostion Being Evaluated By Hospitalist Referrals Zohreh GASTELUM (PCP) Patient Instructions My [facility] Problem Qualifiers Primary Impression: Sepsis Sepsis type: sepsis due to unspecified organism Qualified Codes: A41.9 - Sepsis, unspecified organism Additional Impression: Aspiration pneumonia Aspiration pneumonia type: due to vomit Laterality: bilateral Lung location : unspecified part of lung Qualified Codes: J69.0 - Pneumonitis due to inhalation of food and vomit
[2016-09-16] MEDS ORDERED: ALBUT/IPRATROP 3MG/0.5MG NEB 3 ML VIAL INH ONE (14:00)
[2016-09-16 14:18] VITALS: PULSE 123; O2SAT 100
[2016-09-16 14:19] LABS: MEAN CORPUSCULAR HEMOGLOBIN 29.6 pg (25-34); MEAN PLATELET VOLUME 10.4 fL (7.4-10.4); PLATELET COUNT 304 K/uL (130-400)
[2016-09-16 14:25] LABS: BASO % 0.2 %; BASO ABS # 0.05 K/uL (0-0.2); COMPLETE YES; IG% 0.8 %; LYMPH % 9.4 %; LYMPH ABS # 3.02 K/uL (1.2-3.4); MONO % 3.5 %; NEUT % 86.1 %
[2016-09-16 14:34] LABS: ALB/GLOB RATIO 0.5 (0.9-2); BUN/CREATININE RATIO 36.2 (10-20); CALCIUM 8.9 mg/dl (8.5-10.1)
[2016-09-16 14:50] LABS: POTASSIUM 4.6 mmol/L (3.5-5.1)
[2016-09-16 14:56] LABS: PARTIAL THROMBOPLASTIN RATIO 1.3; PROTHROMBIN TIME (PATIENT) 10.8 SECONDS (9.0-12.0)
[2016-09-16] MEDS ORDERED: ONDANSETRON INJ 2 MG/ML 2 ML VIAL IV PRN (15:45)
[2016-09-16] MEDS ORDERED: ACETAMINOPHEN 650 MG SUPP PR PRN (15:45)
--- NOTE | 2016-09-16 16:29 | Pharmacy Progress Note ---
Pharmacy Antibiotic Consult Date of Service: Sep 16, 2016. Pharmacy Dosing Scope Pharmacy is consulted to initiate vancomycin/Zosyn IV dosing therapy, order appropriate labs and adjust drug dose/frequency. Subjective The patient is a 56 year old male admitted on 09/16/2016 with pneumonia, possibly aspiration. The patient is a prisoner at [facility]. He was recently admitted 09/09-09/11. He was being fed Ensure this morning and the correction staff believe he may have aspirated. His WBC count doubled from 16 to 32 x 10 to third cells. His lactic acid is 2.93 mmol/L. His chest x-ray shows a positive bacterial process. Objective Height (Feet): 5 Height (Inches): 10 Weight (Kilograms): 59.30 Lab Results (24hrs): Laboratory Tests Test 09/16/16 13:43 BUN/Creatinine Ratio 36.2 Blood Urea Nitrogen 36 mg/dl Creatinine 1.00 mg/dl White Blood Count 32.00 K/uL Red Blood Count 4.60 M/uL Hemoglobin 13.6 g/dL Hematocrit 40.0 % Mean Corpuscular Volume 87.0 fL Mean Corpuscular Hemoglobin 29.6 pg Mean Corpuscular Hemoglobin Concent 34.0 g/dl Platelet Count 304 K/uL Mean Platelet Volume 10.4 fL Neutrophils (%) (Auto) 86.1 % Lymphocytes (%) (Auto) 9.4 % Monocytes (%) (Auto) 3.5 % Eosinophils (%) (Auto) 0.0 % Basophils (%) (Auto) 0.2 % Neutrophils # (Auto) 27.55 K/uL Lymphocytes # (Auto) 3.02 K/uL Monocytes # (Auto) 1.11 K/uL Eosinophils # (Auto) 0.00 K/uL Basophils # (Auto) 0.05 K/uL Assessment & Plan Loading dose: vancomycin 1000 mg (16.7 mg/kg) IV X 1 dose then: vancomycin 900 mg IV every 12 hours (population pharmacokinetics suggest a half-life of 11 hours and an elimination constant of 0.063 hr-1); first maintenance dose will be started 4 hours early as full loading dose not given. Goal peak level estimate: between 35 - 40 mcg/mL. Goal trough level estimate: between 15 - 20 mcg/mL (due to risk for pulmonary source). Trough has been ordered for: 1 / 27 / 17 prior to 10 AM dose. ZOSYN: loading dose of Zosyn 4.5 gm IV x 1 dose given in ED then maintenance dose of Zosyn 3.375 gm IV q8 hours ordered Pharmacy will continue to follow and will adjust dose/frequency as necessary. Thank you
[2016-09-16] MEDS ORDERED: PIPERACILL/TAZOBAC CONSULT ACTIVE PRN (16:30)
[2016-09-16] MEDS ORDERED: VANCOMYCIN CONSULT ACTIVE PRN (16:30)
[2016-09-16] MEDS: LORAZEPAM 2 MG/ML 1 ML VIAL IV PRN (17:19)
[2016-09-16 17:25] VITALS: BP 136/79; PULSE 142; TEMP 38.1; O2SAT 95; Ht 177.8 cm; Wt 68.4 kg
[2016-09-16] MEDS: D5NSS + 20MEQ KCL 1,000 ML IV SCH (18:11)
[2016-09-16 18:49] LABS: URINE APPEARANCE CLOUDY (CLEAR); URINE BILIRUBIN NEG (NEG); URINE COLOR YELLOW; URINE EPITHELIAL CELL AUTO >30 /lpf (0-5); URINE NITRITE NEG (NEG); UROBILINOGEN NEG (NEG); ZZUR CULT IF INDIC CLEAN CATCH NO
[2016-09-16 18:51] LABS: MANUAL MICROSCOPIC REQUIRED? NO; REVIEW REQ? YES
--- NOTE | 2016-09-16 18:54 | HISTORY & PHYSICAL EXAMINATION ---
DATE OF ADMISSION: 09/16/2016 PRIMARY CARE PROVIDER: From [facility]. CHIEF COMPLAINT: [facility] in from the [facility] with unresponsiveness, decreased saturation and also increased respirations. HISTORY OF PRESENT COMPLAINT: He is a 56-year-old male with significant past medical history including schizophrenia and ongoing tobacco use disorder, apparently was in hospital recently from September 09 to September 11. He was admitted with change in mental status and that was thought due to metabolic encephalopathy, complicated by psychiatric medication overuse. The patient has been in the penitentiary since . During that time, his psychiatric medications have been on hold to prevent probable side effect of medication and since then he has not been eating or drinking enough. He has been getting more agitated at times and sometimes very depressed. Today this morning, he again was agitated and not been eating but he was advised to take food and while he was eating, he had had likely aspiration with increasing shortness of breath and increasing heart rate and decreasing saturation. From that point, he was transferred to [facility] for further evaluation and treatment. In the ER, he was noted to be tachycardic, tachypneic and hypoxia noted in the penitentiary but not in the ER and his white count was noted to be 32,000 and chest x-ray showed pneumonia involving the right lower lobe. From that point, he received intravenous vancomycin, Zosyn and Levaquin after taking blood culture and he was advised for admission. The patient remained semiresponsive and trying to talk but not making any sense. The history was taken from PA at [facility] and also Dr. Crowe, the psychiatrist at [facility]. He has not been taking his medications for schizophrenia and psychosis since he has been discharged from the hospital and he is getting agitated with psychotic behavior since then and not been eating or drinking and then following food today, he ended up with aspiration and was brought into the Emergency Room. PAST MEDICAL HISTORY: Significant for schizophrenia, tobacco use disorder and recent hospitalization secondary to encephalopathy, came out to be metabolic in nature. PAST SURGICAL HISTORY: Nothing obtainable. FAMILY HISTORY: Cannot be obtained. SOCIAL HISTORY: He uses tobacco and he is a penitentiary inmate. ALLERGIES: NOTED IN THE CHART, BENZTROPINE AND HALOPERIDOL. MEDICATIONS: He has been on Clozaril 100 mg twice daily, docusate sodium 100 mg b.i.d., and Inderal 10 mg b.i.d. but apparently he has not been taking any medications since . REVIEW OF SYSTEMS: Not obtainable. PHYSICAL EXAMINATION: GENERAL: On examination in the Emergency Room, he was alert, awake. He was mumbling, trying to talk but did not make any sense. He was asking for food as well. VITAL SIGNS: Temperature 36.9, pulse was 138, blood pressure 130/100, saturation 96% on 2 liters nasal cannula. HEENT: Unremarkable. NECK: Supple. No JVD, no bruit. CHEST: Decreased breath sounds and bibasilar crackles, right greater than the left. EKG was in sinus rhythm, sinus tachycardia at 137 per minute and nonspecific ST-T wave changes. HEART: S1, S2 regular. No murmur appreciated. ABDOMEN: Soft, benign, mildly tender in the epigastrium. No organomegaly. Bowel sounds present. EXTREMITIES: Negative for any edema. MUSCULOSKELETAL: Examination did not show any acute arthritis involving any joint. CENTRAL NERVOUS SYSTEM: He was alert, awake, and was trying to talk but did not make any sense. He has some psychotic behavior as well. LABS NOTED TODAY: White count was 32,000, H\T\H 13.6/40.0, platelet 304. Sodium 147, potassium 4.6, chloride 110, carbon dioxide 24, BUN 36, creatinine 1.0, random glucose 156. Lactic acid was 2.93. LFTs unremarkable except AST 57. PT/INR unremarkable. Chest x-ray: Bibasilar infiltration, more on the right. EKG: Sinus tachycardia, rate of 137 per minute and nonspecific ST-T wave changes. IMPRESSION AND PLAN: 1. The patient meets criteria of sepsis on admission, tachycardia, tachypnea and also increasing white count of 32,000. Blood cultures were taken and he was started with intravenous vancomycin, Zosyn and Levaquin for possible aspiration pneumonia. He will be admitted to telemetry unit and monitor lactic acid and fluid status. 2. Schizophrenia. The patient was on Clozaril but that has been on hold. He has increasing agitation secondary to withdrawal from the medication. The case was discussed with Dr. Crowe, the psychiatrist in penitentiary and he advised the patient to have Ativan as needed for agitation while in the hospital. 3. Tobacco use disorder. 4. Gastrointestinal prophylaxis with intravenous Protonix. 5. Deep venous thrombosis prophylaxis with subQ heparin. 6. Code status: He will be a full code. In my clinical judgment, the beneficiary meets criteria as per CMS for 2-midnight stay in the hospital. ZEYNEP
[2016-09-16 19:53] VITALS: BP 128/69; PULSE 132; TEMP 37.8; O2SAT 96
[2016-09-16 20:00] VITALS: O2SAT 96
[2016-09-16 20:03] LABS: HEMATOCRIT 33.5 % (42-52); MEAN CELL VOLUME 85.9 fL (80-100); MEAN CORPUSCULAR HEMOGLOBIN 29.5 pg (25-34); MEAN CORPUSCULAR HGB CONC 34.3 g/dl (32-36); MEAN PLATELET VOLUME 9.6 fL (7.4-10.4); PLATELET COUNT 274 K/uL (130-400); WHITE BLOOD COUNT 24.27 K/uL (4.8-10.8)
[2016-09-16 20:28] LABS: CALCIUM 7.9 mg/dl (8.5-10.1); CREATININE 0.9 mg/dl (0.60-1.40); POTASSIUM 3.7 mmol/L (3.5-5.1)
[2016-09-16] MEDS: PIPERACILL/TAZOBAC IV 3.375 GM in DEXTROSE 5% 100ML 100 ML IV SCH (20:32)
[2016-09-16] MEDS: HEPARIN SOD 5000 UNIT/0.5 ML CARP SQ SCH (22:58)
[2016-09-16] MEDS: VANCOMYCIN INJ 900 MG in SODIUM CHLORIDE 0.9% 250ML 250 ML IV SCH (23:45)
[2016-09-17] VITALS (10 sets, daily range): BP systolic 104–149; BP diastolic 71–96; PULSE 99–123; TEMP 36.7–37.7; O2SAT 94–98
[2016-09-17] MEDS: PIPERACILL/TAZOBAC IV 3.375 GM in DEXTROSE 5% 100ML 100 ML IV SCH ×3 (04:04→20:21)
[2016-09-17] MEDS: HEPARIN SOD 5000 UNIT/0.5 ML CARP SQ SCH ×3 (06:24→21:40)
[2016-09-17 07:34] LABS: HEMATOCRIT 34.7 % (42-52); MEAN CELL VOLUME 87.4 fL (80-100); MEAN CORPUSCULAR HGB CONC 33.1 g/dl (32-36); MEAN PLATELET VOLUME 10.2 fL (7.4-10.4); PLATELET COUNT 291 K/uL (130-400); RED BLOOD COUNT 3.97 M/uL (4.7-6.1); WHITE BLOOD COUNT 23.52 K/uL (4.8-10.8)
[2016-09-17 08:04] LABS: BUN/CREATININE RATIO 20.7 (10-20); CALCIUM 8.2 mg/dl (8.5-10.1); CREATININE 0.74 mg/dl (0.60-1.40); POTASSIUM 3.4 mmol/L (3.5-5.1)
[2016-09-17] MEDS: VANCOMYCIN INJ 900 MG in SODIUM CHLORIDE 0.9% 250ML 250 ML IV SCH ×2 (10:01→21:35)
[2016-09-17] MEDS: PANTOprazole INJ 40 MG in SYRINGE 0 ML IV SCH (10:07)
[2016-09-17] MEDS: D5NSS + 20MEQ KCL 1,000 ML IV SCH ×3 (13:08→20:21)
[2016-09-17] MEDS: LEVOFLOXACIN / D5W 750 MG in PREMIXED IN D5W 150 ML IV SCH (13:09)
[2016-09-17] MEDS: LORAZEPAM 2 MG/ML 1 ML VIAL IV PRN ×2 (16:03→20:29)
--- NOTE | 2016-09-17 16:55 | Progress Note ---
Internal Med Progress Note Date of Service: Sep 17, 2016. Provider Documentation: SUBJECTIVE: The patient was seen and examined Still mumbling Not in any acute distress Wants to eat OBJECTIVE: Vital Signs-as noted below Exam: General-Mumbling No acute distress Eyes-Normal ENT-normal Neck-supple Lungs-Decreased breath sound bilaterally Minimal crackles Heart-Regular,no murmru Abdomen-Benign,no masses,bowel sound present Extremities-No edema Neuro-A Mumbling No acute Psychosis Lab data as noted below. ASSESSMENT & PLAN: Sepsis Likely due to Aspiration Pneumonia The patient meets criteria of sepsis on admission, tachycardia, tachypnea Increased white count of 32,000. Blood cultures were taken and he was started with intravenous vancomycin, Zosyn and Levaquin Initial POC Lactate 2.9-normalized Stable in Tele Speech evaluation Schizophrenia. The patient was on Clozaril but that has been on hold. He has increasing agitation secondary to withdrawal from the medication. The case was discussed with Dr. Crowe, the psychiatrist in [facility] Advised the patient to have Ativan as needed for agitation while in the hospital. Needs to discuss with him again when to start Clozaril Recent Hospitalization with Metabolic Encephalopathy Secondary to Drug OD Tobacco use disorder. Gastrointestinal prophylaxis with intravenous Protonix. Deep venous thrombosis prophylaxis with subQ heparin. Code status: He will be a full code. Disposition Awaited Vital Signs: Date Time Temp Pulse Resp B/P Pulse Ox O2 Delivery O2 Flow Rate FiO2 09/17/16 16:00 Nasal Cannula 2.0 09/17/16 15:50 37.7 118 38 149/96 96 Nasal Cannula 2.0 09/17/16 13:51 Room Air 2.0 09/17/16 13:42 115 35 141/88 95 Nasal Cannula 2.0 09/17/16 12:00 Nasal Cannula 2.0 09/17/16 11:38 36.7 108 18 144/88 98 Room Air 09/17/16 08:00 Nasal Cannula 2.0 09/17/16 07:54 37.1 107 20 124/86 95 Nasal Cannula 2.0 09/17/16 04:40 37.2 111 18 130/83 96 Nasal Cannula 2.0 09/17/16 04:00 Nasal Cannula 2.0 09/17/16 00:29 123 18 129/73 94 Nasal Cannula 09/17/16 00:00 Nasal Cannula 2.0 09/16/16 20:00 96 Nasal Cannula 2.0 09/16/16 19:53 37.8 132 22 128/69 96 Nasal Cannula 2.0 09/16/16 17:25 38.1 142 30 136/79 95 Nasal Cannula 2.0 Lab Results: Results Past 24 Hours Test 09/16/16 18:30 09/16/16 19:56 09/17/16 06:36 Range/Units Urine Color YELLOW Urine Appearance CLOUDY CLEAR Urine pH 5.0 4.5-7.5 Urine Specific [place] 1.020 1.000-1.030 Urine Protein NEG NEG Urine Glucose (UA) NEG NEG Urine Ketones 2+ NEG Urine Occult Blood NEG NEG Urine Nitrite NEG NEG Urine Bilirubin NEG NEG Urine Urobilinogen NEG NEG Urine Leukocyte Esterase NEG NEG Urine WBC (Auto) 1-5 0-5 /hpf Urine RBC (Auto) 0-4 0-4 /hpf Urine Hyaline Casts (Auto) 5-10 0-5 /lpf Urine Epithelial Cells (Auto) >30 0-5 /lpf Urine Bacteria (Auto) NEG NEG Urine Renal Epithelial Cells 0-5 /lpf Urine Crystals URIC ACID NONE PRSENT Urine Pathogenic Casts 0 /lpf White Blood Count 24.27 23.52 4.8-10.8 K/uL Red Blood Count 3.90 3.97 4.7-6.1 M/uL Hemoglobin 11.5 11.5 14.0-18.0 g/dL Hematocrit 33.5 34.7 42-52 % Mean Corpuscular Volume 85.9 87.4 80-100 fL Mean Corpuscular Hemoglobin 29.5 29.0 25-34 pg Mean Corpuscular Hemoglobin Concent 34.3 33.1 32-36 g/dl RDW Standard Deviation 45.1 47.1 36.4-46.3 fL RDW Coefficient of Variation 14.5 14.7 11.5-14.5 % Platelet Count 274 291 130-400 K/uL Mean Platelet Volume 9.6 10.2 7.4-10.4 fL Sodium Level 151 154 136-145 mmol/L Potassium Level 3.7 3.4 3.5-5.1 mmol/L Chloride Level 115 118 98-107 mmol/L Carbon Dioxide Level 27 28 21-32 mmol/L Anion Gap 9.0 8.0 3-11 mmol/L Blood Urea Nitrogen 23 15 7-18 mg/dl Creatinine 0.90 0.74 0.60-1.40 mg/dl Est Creatinine Clear Calc Drug Dose 78.7 99.1 ml/min Estimated GFR () 111.8 121.2 Estimated GFR (Non- 96.5 104.6 BUN/Creatinine Ratio 26.0 20.7 10-20 Random Glucose 174 129 70-99 mg/dl Lactic Acid Level 1.4 0.4-2.0 mmol/L Calcium Level 7.9 8.2 8.5-10.1 mg/dl Microbiology Results 09/16/16 MRSA DNA Surveillance Screen - Final, Complete Specimen Negative for MRSA by DNA Probe
[2016-09-18] VITALS (8 sets, daily range): BP systolic 126–147; BP diastolic 84–98; PULSE 102–106; TEMP 36.6–37.7; O2SAT 95–98
[2016-09-18] MEDS: D5NSS + 20MEQ KCL 1,000 ML IV SCH ×2 (03:45→08:02)
[2016-09-18] MEDS: PIPERACILL/TAZOBAC IV 3.375 GM in DEXTROSE 5% 100ML 100 ML IV SCH ×3 (03:45→19:46)
[2016-09-18] MEDS: HEPARIN SOD 5000 UNIT/0.5 ML CARP SQ SCH ×3 (05:51→21:05)
[2016-09-18 07:09] LABS: CALCIUM 7.6 mg/dl (8.5-10.1); CREATININE 0.7 mg/dl (0.60-1.40); MAGNESIUM 2.5 mg/dl (1.8-2.4); POTASSIUM 3.6 mmol/L (3.5-5.1)
[2016-09-18] MEDS ORDERED: VANCOMYCIN TROUGH SCH (09:30)
[2016-09-18] MEDS: D5W AND 1/2NSS + 20MEQ KCL 1,000 ML IV SCH ×2 (09:55→19:46)
[2016-09-18] MEDS: VANCOMYCIN INJ 900 MG in SODIUM CHLORIDE 0.9% 250ML 250 ML IV SCH (09:55)
[2016-09-18] MEDS: PANTOprazole INJ 40 MG in SYRINGE 0 ML IV SCH (12:02)
--- NOTE | 2016-09-18 12:37 | Psych Management Progress Note ---
Psychiatry Miscellaneous Date of Service: Sep 18, 2016. patient seen, known to me from last hospital stay. Full consult dictated. Considering Zyprexa Zydis and/or higher dose Ativan if respiratory status can tolerate as both may be helpful for catatonia though likely delirium as well. Awaiting return call from Dr. Crowe.
--- NOTE | 2016-09-18 13:21 | PSYCHIATRIC CONSULTATION ---
DATE OF CONSULTATION: 09/18/2016 IDENTIFYING DATA: Mr. Padilla is a 56-year-old inmate at [facility]. He was readmitted to the medical floor for aspiration pneumonia and continues to have altered mental status. The patient is known to consult service from consultation last hospital stay on 09/10/2016. CHIEF COMPLAINT: Mumbling incoherently, off Clozaril. HISTORY OF PRESENT ILLNESS: The patient has a long-term history of schizophrenia. He had been relatively stable on clozapine but has had marginal absolute neutrophil counts periodically, requiring the medicine to be held at times. He rapidly decompensates off of the medication. He was previously admitted after restarting Clozaril and having a fall in his cell. Off Clozaril, he quickly becomes tearful with loose associations and will stop answering questions appropriately. There were attempts to try Trilafon. He was ultimately restarted on Clozaril but was not able to take medications consistently upon return to the detention, continued to become increasingly confused and aspirated while eating. He has been confused on the medical floor. Guards who are in attendance at his bedside no longer feel he is in anyway malingering symptoms. CURRENT PSYCHIATRIC MEDICATIONS: Ativan 0.5 mg q. 4 hours p.r.n. IV for agitation. The patient is receiving IV fluids and antibiotics. PAST PSYCHIATRIC HISTORY: As per detention records reviewed last consultation. PRIOR MEDICATION TRIALS: Essentially unknown prior to incarceration. ALLERGIES: LISTED TO HALDOL AND COGENTIN. PAST MEDICAL HISTORY: Status post fall, status post aspiration pneumonia, tobacco use disorder history. FAMILY HISTORY: Unavailable. SUBSTANCE USE HISTORY: Unavailable. Has been incarcerated. No known substance use. PERSONAL HISTORY: Long-term inmate, patient is unable to provide. MENTAL STATUS EXAMINATION: The patient is alert, staring straight ahead. He does not make eye contact. His thoughts are very disorganized, he is mumbling, did not attempt to check for waxy flexibility, is currently in cuffs. He has not been moving his lower extremities very much per guards at bedside. He appears to be responding to internal stimuli and/or catatonic. IMPRESSION: A 56-year-old -[place] male with decompensation of psychosis following Clozaril discontinuation. He is currently readmitted with aspiration pneumonia which is likely contributing to some delirium with a white blood cell count on representation of 32. Dr. Crowe had previously discussed the case with Dr. Augustin, recommended p.r.n. Ativan for agitation. PLAN: Message left for Dr. Crowe. The patient should likely have some kind of dissolvable agent here in the hospital such as 5 mg Zyprexa Zydis p.o. at bedtime and then b.i.d. as tolerated. I would be hesitant to resume Clozaril at any point in the near future, given difficulties with consistent administration and his known swallowing issues. The patient may need repeat head imaging to rule out stroke-like event if not improving. I would be hesitant to use high dose benzodiazepines for what appears to be catatonia as it may affect respirations. I did confirm with the detention nurse that they have Zyprexa if he is switched back to p.o., again awaiting return call from Dr. Crowe. The patient is confused but currently not combative in anyway. There is no acute need for additional p.r.n.'s at this moment.
[2016-09-18] MEDS: LEVOFLOXACIN / D5W 750 MG in PREMIXED IN D5W 150 ML IV SCH (14:11)
[2016-09-18] MEDS ORDERED: DiphenhydrAMINE HCL 50 MG/ML VIAL IV PRN (17:15)
--- NOTE | 2016-09-18 19:01 | Progress Note ---
Internal Med Progress Note Date of Service: Sep 18, 2016. Provider Documentation: SUBJECTIVE: patient staring and mumbling words not obeying commands afebrile patient was able to eat with help as per nursing staff hemodynamics stable OBJECTIVE: Vital Signs-as noted below Exam: General-alert and awake and staring. Do not obey commands Neck-no neck masses Lungs-cta b/l no wheezing or crackles Heart-s1 and s2 heard regular rate and rhythm no murmurs Abdomen-soft bowel sounds present non tender no distension Extremities-no erythema no edema Neuro-alert and awake staring mumbling words not obeying commands Lab data as noted below. ASSESSMENT & PLAN: Sepsis Likely due to Aspiration Pneumonia The patient met criteria of sepsis on admission, tachycardia, tachypnea Increased white count of 32,000. Was started with intravenous vancomycin, Zosyn and Levaquin Initial POC Lactate 2.9-normalized hemodynamics stable mrsa swab negative will stop vancomycin cx no growth so far leukocytosis improving Seen by Speech and recommends moist purred diet Schizophrenia. The patient was on Clozaril but that has been on hold. He has increasing agitation secondary to withdrawal from the medication. appreciate psychiatry inputs started on Zyprexa Recent Hospitalization with Metabolic Encephalopathy Secondary to Drug OD Tobacco use disorder. Gastrointestinal prophylaxis with intravenous Protonix. Comminuted intra-articular fracture of fifth metacarpal was on splint which came off. Will consult ortho. Deep venous thrombosis prophylaxis with subQ heparin. Code status: He will be a full code. DISPOSITION monitor in tele Vital Signs: Date Time Temp Pulse Resp B/P Pulse Ox O2 Delivery O2 Flow Rate FiO2 09/18/16 16:00 Nasal Cannula 2.0 09/18/16 12:00 Nasal Cannula 2.0 09/18/16 11:56 36.9 106 18 146/94 97 09/18/16 08:00 Nasal Cannula 2.0 09/18/16 07:47 37.0 105 18 144/87 96 09/18/16 04:00 95 Nasal Cannula 2.0 09/18/16 03:37 36.6 106 30 126/84 95 Nasal Cannula 2.0 09/17/16 23:59 95 Nasal Cannula 2.0 09/17/16 23:32 37.2 99 24 104/71 95 Nasal Cannula 2.0 09/17/16 20:00 95 Nasal Cannula 2.0 09/17/16 19:26 36.8 120 18 143/92 95 Lab Results: Results Past 24 Hours Test 09/18/16 05:48 09/18/16 09:40 Range/Units Sodium Level 150 136-145 mmol/L Potassium Level 3.6 3.5-5.1 mmol/L Chloride Level 115 98-107 mmol/L Carbon Dioxide Level 27 21-32 mmol/L Anion Gap 8.0 3-11 mmol/L Blood Urea Nitrogen 11 7-18 mg/dl Creatinine 0.70 0.60-1.40 mg/dl Est Creatinine Clear Calc Drug Dose 107.7 ml/min Estimated GFR () 124.0 Estimated GFR (Non- 107.0 BUN/Creatinine Ratio 15.0 10-20 Random Glucose 156 70-99 mg/dl Calcium Level 7.6 8.5-10.1 mg/dl Magnesium Level 2.5 1.8-2.4 mg/dl Vancomycin Level Trough 6.9 SEE COMMENT mcg/ml
[2016-09-18] MEDS ORDERED: OLANZAPINE ZYDIS 5 MG ORALLY DIS. TAB PO SCH (21:00)
[2016-09-19] VITALS (8 sets, daily range): BP systolic 110–145; BP diastolic 78–104; PULSE 93–109; TEMP 36.6–37.7; O2SAT 90–99
[2016-09-19] MEDS: PIPERACILL/TAZOBAC IV 3.375 GM in DEXTROSE 5% 100ML 100 ML IV SCH ×3 (03:52→19:46)
[2016-09-19] MEDS: D5W AND 1/2NSS + 20MEQ KCL 1,000 ML IV SCH ×2 (03:53→15:48)
[2016-09-19 06:16] LABS: HEMATOCRIT 36.3 % (42-52); MEAN CELL VOLUME 87.5 fL (80-100); MEAN CORPUSCULAR HEMOGLOBIN 29.4 pg (25-34); MEAN CORPUSCULAR HGB CONC 33.6 g/dl (32-36); MEAN PLATELET VOLUME 10.2 fL (7.4-10.4); PLATELET COUNT 289 K/uL (130-400); RED BLOOD COUNT 4.15 M/uL (4.7-6.1); WHITE BLOOD COUNT 15.01 K/uL (4.8-10.8)
[2016-09-19] MEDS: HEPARIN SOD 5000 UNIT/0.5 ML CARP SQ SCH ×3 (06:19→21:18)
[2016-09-19 06:54] LABS: CREATININE 0.67 mg/dl (0.60-1.40)
[2016-09-19] MEDS ORDERED: LORAZEPAM 2 MG/ML 1 ML VIAL IV STA (09:28)
[2016-09-19] MEDS ORDERED: OLANZAPINE ZYDIS 5 MG ORALLY DIS. TAB PO STA (09:35)
--- NOTE | 2016-09-19 10:12 | Psychiatric Progress Notes ---
Psychiatric Progress Note Date of Service Sep 19, 2016. Notes ID: Patient reviewed with liaison nurse. Started Zyprexa Zydis last pm. Guards at bedside CC: rambling speech, restlessness HPI: speech is clearer but switched from decreased responsiveness/catatonic in appearance to constant chanting and restlessness. Breathing appears improved this am. Moving extremities symmetrically. ROS: unable to complete MSE: rambling pressured speech, psychomotor restlessness (reportedly >30 min). Last 8 Hrs Date Time Temp Pulse Resp B/P Pulse Ox O2 Delivery O2 Flow Rate FiO2 09/19/16 04:04 36.6 100 20 145/104 99 Nasal Cannula 2.0 09/19/16 04:00 97 Nasal Cannula 2.0 Last 24 Hours Test 09/19/16 05:26 09/19/16 09:05 White Blood Count 15.01 K/uL Red Blood Count 4.15 M/uL Hemoglobin 12.2 g/dL Hematocrit 36.3 % Mean Corpuscular Volume 87.5 fL Mean Corpuscular Hemoglobin 29.4 pg Mean Corpuscular Hemoglobin Concent 33.6 g/dl RDW Standard Deviation 47.0 fL RDW Coefficient of Variation 14.5 % Platelet Count 289 K/uL Mean Platelet Volume 10.2 fL Creatinine 0.67 mg/dl Est Creatinine Clear Calc Drug Dose 121.9 ml/min Estimated GFR () 126.3 Estimated GFR (Non- 108.9 Imp: schizophrenia with catatonia, currently agitated catatonia Plan: directed nursing to give 2 mg Ativan IV for restless catatonia, now that responding and vitals elevated due to agitation need to address with standing order Ativan titrate Zyprexa to BID for psychosis reviewed with nursing that if any decrease in O2 sat/excessive sedation Ativan may need adjusted back down. Should continue aspiration precautions for AMS.
[2016-09-19 10:35] LABS: BUN/CREATININE RATIO 11.9 (10-20); CALCIUM 8.3 mg/dl (8.5-10.1); CREATININE 0.83 mg/dl (0.60-1.40); POTASSIUM 4.1 mmol/L (3.5-5.1)
[2016-09-19] MEDS ORDERED: LORAZEPAM 2 MG/ML 1 ML VIAL IV PRN (11:45)
[2016-09-19] MEDS: PANTOprazole INJ 40 MG in SYRINGE 0 ML IV SCH (12:21)
[2016-09-19] MEDS: LEVOFLOXACIN / D5W 750 MG in PREMIXED IN D5W 150 ML IV SCH (13:38)
[2016-09-19] MEDS: LORAZEPAM 2 MG/ML 1 ML VIAL IV SCH ×2 (13:44→21:17)
--- NOTE | 2016-09-19 15:29 | ORTHOPEDIC CONSULTATION ---
DATE OF CONSULTATION: 09/19/2016 HISTORY OF PRESENT ILLNESS: This is a consultation on this 56-year-old [facility] inmate who was seen at request of Dr. Augustin for a left fifth metacarpal fracture. A consultation is made previously for treatment of a traumatic left fifth metacarpal fracture. However, the patient was discharged from [facility] and then returned to [facility] on 09/16/2016 with unresponsiveness, decreased oxygen saturation and increased respirations. He was treated in a splint. The splint apparently had been dislodged somehow and orthopedics was then reconsulted. This 56-year-old gentleman has a history of schizophrenia and ongoing tobacco use/disorder. He has had varying degrees of agitation and depression. The patient was admitted to the hospital for multiple medical concerns. Orthopedics consulted regarding his left hand. PAST MEDICAL HISTORY: Schizophrenia, tobacco use/disorder, metabolic encephalopathy. PAST SURGICAL HISTORY: None related. ALLERGIES: BENZTROPINE AND HALOPERIDOL. MEDICATIONS: Clozaril 100 mg b.i.d., docusate 100 mg p.o. b.i.d., Inderal 10 mg p.o. b.i.d. SOCIAL HISTORY: [facility] inmate, tobacco use daily. No recent drug use. No recent alcohol use as he is incarcerated. PHYSICAL EXAMINATION: GENERAL: Present with 2 [facility] guards at bedside. The patient is obtunded, breathing independently sitting upright. Unresponsive to questioning. Difficult to arouse due to recent Ativan administration. EXTREMITIES: Examination of the left upper extremity demonstrates an Robinson wrap with Adaptic over the DIP joints. He has varying degrees of healing abrasions on the second, third and fourth DIP joints. No discharge, no purulence, no erythema, no streaking. Radial pulses 2/4. Difficult to assess radial, ulnar and median nerve sensory and motor function due to patient obtundation. No tenderness to palpation over the fifth metacarpal. There is no crepitation with passive range of motion of the fifth metacarpophalangeal joint. No recent radiographs were obtained. Most recent radiographs were of 09/09/2016 noting an intra-articular mildly comminuted fifth metacarpal head and neck fracture. No significant flexion or extension deformity is noted. There is no splint present during the examination today. IMPRESSION: Left comminuted intra-articular fifth metacarpal head and neck fracture. RECOMMENDATIONS: Will order new radiographs of the left hand. Pending findings of the radiographs, will likely be placed back into an ulnar gutter splint for closed treatment of left fifth metacarpal head and neck fracture. Will follow with you. Thanks for the opportunity to consult and care for this patient. ZEYNEP
--- NOTE | 2016-09-19 17:56 | Progress Note ---
Internal Med Progress Note Date of Service: Sep 19, 2016. Provider Documentation: SUBJECTIVE: agitated and random talking doesn't obey commands or answers questions eating ok with assistance had mild temp spike OBJECTIVE: Vital Signs-as noted below Exam: General-alert and awake and random talking. agitated.Do not obey commands Neck-no neck masses Lungs-cta b/l no wheezing or crackles Heart-s1 and s2 heard regular rate and rhythm no murmurs Abdomen-soft bowel sounds present non tender no distension Extremities-no erythema no edema Neuro-alert and awake not obeying commands Lab data as noted below. ASSESSMENT & PLAN: Sepsis Likely due to Aspiration Pneumonia The patient met criteria of sepsis on admission, tachycardia, tachypnea Increased white count of 32,000. Was started with intravenous vancomycin, Zosyn and Levaquin Initial POC Lactate 2.9-normalized hemodynamics stable mrsa swab negative will stop vancomycin cx no growth so far leukocytosis improving Seen by Speech and recommends moist purred diet continue iv fluids and iv abx Schizophrenia. The patient was on Clozaril but that has been on hold. He has increasing agitation secondary to withdrawal from the medication. appreciate psychiatry inputs started on Zyprexa bid and ativan iv tid close monitor Recent Hospitalization with Metabolic Encephalopathy Secondary to Drug OD Tobacco use disorder. Gastrointestinal prophylaxis with intravenous Protonix. Comminuted intra-articular fracture of fifth metacarpal was on splint which came off. Consulted ortho and appreciate inputs Deep venous thrombosis prophylaxis with subQ heparin. Code status: He will be a full code. DISPOSITION monitor in tele Vital Signs: Date Time Temp Pulse Resp B/P Pulse Ox O2 Delivery O2 Flow Rate FiO2 09/19/16 16:35 37.0 93 27 110/80 97 Nasal Cannula 1.0 09/19/16 15:14 96 Nasal Cannula 2.0 09/19/16 12:00 93 Nasal Cannula 2.0 09/19/16 11:55 37.1 109 18 138/93 90 2.0 09/19/16 08:00 37.7 97 18 142/94 99 Nasal Cannula 2.0 09/19/16 08:00 94 Nasal Cannula 2.0 09/19/16 04:04 36.6 100 20 145/104 99 Nasal Cannula 2.0 09/19/16 04:00 97 Nasal Cannula 2.0 09/18/16 23:59 97 Nasal Cannula 2.0 09/18/16 23:45 36.6 102 22 147/98 98 Nasal Cannula 2.0 09/18/16 20:00 97 Nasal Cannula 2.0 09/18/16 19:56 37.7 103 28 147/90 97 Nasal Cannula 2.0 Lab Results: Results Past 24 Hours Test 09/19/16 05:26 09/19/16 09:05 Range/Units White Blood Count 15.01 4.8-10.8 K/uL Red Blood Count 4.15 4.7-6.1 M/uL Hemoglobin 12.2 14.0-18.0 g/dL Hematocrit 36.3 42-52 % Mean Corpuscular Volume 87.5 80-100 fL Mean Corpuscular Hemoglobin 29.4 25-34 pg Mean Corpuscular Hemoglobin Concent 33.6 32-36 g/dl RDW Standard Deviation 47.0 36.4-46.3 fL RDW Coefficient of Variation 14.5 11.5-14.5 % Platelet Count 289 130-400 K/uL Mean Platelet Volume 10.2 7.4-10.4 fL Creatinine 0.67 0.83 0.60-1.40 mg/dl Est Creatinine Clear Calc Drug Dose 121.9 98.4 ml/min Estimated GFR () 126.3 115.6 Estimated GFR (Non- 108.9 99.8 Sodium Level 140 136-145 mmol/L Potassium Level 4.1 3.5-5.1 mmol/L Chloride Level 105 98-107 mmol/L Carbon Dioxide Level 26 21-32 mmol/L Anion Gap 9.0 3-11 mmol/L Blood Urea Nitrogen 10 7-18 mg/dl BUN/Creatinine Ratio 11.9 10-20 Random Glucose 124 70-99 mg/dl Calcium Level 8.3 8.5-10.1 mg/dl
[2016-09-19] MEDS: SODIUM CHLORIDE 0.9% 1000ML 1,000 ML IV SCH (18:41)
--- NOTE | 2016-09-19 19:39 | DIAGNOSTIC IMAGING REPORT ---
LEFT HAND MIN 3 VIEWS ROUTINE CLINICAL HISTORY: fracture left 5th metacarpal head COMPARISON: 09/09/2016 DISCUSSION: There is a comminuted fracture involving the fifth metacarpal shaft and neck. There is a slight interval increase in the displacement of the fracture. There is mild widening of the fifth metacarpal phalangeal joint. This was not present on the prior study. There is dorsal soft tissue swelling IMPRESSION: Comminuted fracture involving the fifth metacarpal neck and shaft. There has been slight interval increase in the displacement of the fracture fragments, and there is now evidence for widening of the fifth metacarpal phalangeal joint. Electronically signed by: Benson Gonzalez M.D. 09/19/2016 7:38 PM Dictated Date/Time: 09/19/2016 7:35 PM
[2016-09-19] MEDS: OLANZAPINE ZYDIS 5 MG ORALLY DIS. TAB PO SCH (20:57)
[2016-09-20] VITALS (8 sets, daily range): BP systolic 108–144; BP diastolic 71–92; PULSE 83–106; TEMP 36.8–37.5; O2SAT 94–98
[2016-09-20] MEDS: PIPERACILL/TAZOBAC IV 3.375 GM in DEXTROSE 5% 100ML 100 ML IV SCH ×3 (04:28→20:35)
[2016-09-20 05:58] LABS: BASO % 0.3 %; BASO ABS # 0.03 K/uL (0-0.2); COMPLETE YES; EOS % 1.2 %; HEMATOCRIT 38.8 % (42-52); IG% 1.6 %; LYMPH % 13.6 %; LYMPH ABS # 1.49 K/uL (1.2-3.4); MEAN CELL VOLUME 87.4 fL (80-100); MEAN CORPUSCULAR HEMOGLOBIN 28.8 pg (25-34); MEAN PLATELET VOLUME 10.2 fL (7.4-10.4); MONO % 11.5 %; NEUT % 71.8 %; PLATELET COUNT 283 K/uL (130-400); RED BLOOD COUNT 4.44 M/uL (4.7-6.1); WHITE BLOOD COUNT 10.99 K/uL (4.8-10.8)
[2016-09-20] MEDS: HEPARIN SOD 5000 UNIT/0.5 ML CARP SQ SCH ×3 (06:07→21:34)
[2016-09-20 06:28] LABS: BUN/CREATININE RATIO 10.7 (10-20); CREATININE 0.75 mg/dl (0.60-1.40); POTASSIUM 3.9 mmol/L (3.5-5.1)
[2016-09-20] MEDS: SODIUM CHLORIDE 0.9% 1000ML 1,000 ML IV SCH ×2 (08:02→20:36)
[2016-09-20] MEDS: PANTOprazole INJ 40 MG in SYRINGE 0 ML IV SCH (08:03)
[2016-09-20] MEDS: OLANZAPINE ZYDIS 5 MG ORALLY DIS. TAB PO SCH ×2 (08:03→20:37)
[2016-09-20] MEDS: LORAZEPAM 2 MG/ML 1 ML VIAL IV SCH (09:00)
--- NOTE | 2016-09-20 10:30 | Orthopedic Progress Note ---
Orthopedic Progress Note Date of Service Sep 20, 2016. Subjective Additional Notes: patient unable to verbalize at this time, disoriented. mumbling during visit Objective splint C/D/I (splint applied today) Date Time Temp Pulse Resp B/P Pulse Ox O2 Delivery O2 Flow Rate FiO2 09/20/16 08:00 Room Air 09/20/16 07:47 37.0 83 18 132/90 94 Room Air 09/20/16 04:00 Nasal Cannula 2.0 09/20/16 04:00 36.8 88 20 131/92 98 Room Air 09/20/16 00:00 Nasal Cannula 2.0 09/20/16 00:00 37.5 86 18 112/73 96 Nasal Cannula 2.0 09/19/16 20:53 37.6 97 22 113/78 97 Nasal Cannula 1.0 09/19/16 20:00 Nasal Cannula 2.0 09/19/16 16:35 37.0 93 27 110/80 97 Nasal Cannula 1.0 09/19/16 15:14 96 Nasal Cannula 2.0 09/19/16 12:00 93 Nasal Cannula 2.0 09/19/16 11:55 37.1 109 18 138/93 90 2.0 Laboratory Results 24 Hours: Test 09/20/16 05:05 White Blood Count 10.99 K/uL Red Blood Count 4.44 M/uL Hemoglobin 12.8 g/dL Hematocrit 38.8 % Mean Corpuscular Volume 87.4 fL Mean Corpuscular Hemoglobin 28.8 pg Mean Corpuscular Hemoglobin Concent 33.0 g/dl Platelet Count 283 K/uL Mean Platelet Volume 10.2 fL Neutrophils (%) (Auto) 71.8 % Lymphocytes (%) (Auto) 13.6 % Monocytes (%) (Auto) 11.5 % Eosinophils (%) (Auto) 1.2 % Basophils (%) (Auto) 0.3 % Neutrophils # (Auto) 7.90 K/uL Lymphocytes # (Auto) 1.49 K/uL Monocytes # (Auto) 1.26 K/uL Eosinophils # (Auto) 0.13 K/uL Basophils # (Auto) 0.03 K/uL Assessment & Plan Assessment: left 5th metacarpal fracture Plan: Ulnar gutter splint today. orthopedics will sign off on patient Discharge Planning Discharge Planning: uncertain (halfway)
[2016-09-20] MEDS: LEVOFLOXACIN / D5W 750 MG in PREMIXED IN D5W 150 ML IV SCH (13:51)
[2016-09-20] MEDS: LORAZEPAM INJ 1 MG in SYRINGE 0.5 ML IV SCH ×2 (13:51→20:38)
--- NOTE | 2016-09-20 15:59 | Psychiatric Progress Notes ---
Progress Note Date of Service Sep 20, 2016. Chief Complaint "Agitation". Subjective Patient was seen & assessed interval progress reviewed with nursing staff. Patient was sleeping soundly and not able to respond to questions. Nursing staff report that patient was able to sit up and eat breakfast and appeared less agitated. [employer]al officers present with patient also reports that patient is less agitated. Review of Systems not able to assess Mental Status Exam Patient appears sedated at this time and not able to respond to interviewer. Impression Patient agitation no longer present. He currently appears very sedated by report from nursing staff and correctional officers who are with patient indicate that patient has been more and cooperative earlier today. Plan Will continue Ativan and Zyprexa Zydis at this time and re-evaluate level of sedation and adjust medications accordingly. Data Vital Signs Last 24 Hrs: Date Time Temp Pulse Resp B/P Pulse Ox O2 Delivery O2 Flow Rate FiO2 09/20/16 15:35 37.3 106 16 144/91 97 Room Air 09/20/16 11:21 37.0 88 18 108/71 97 Room Air 09/20/16 11:15 37.0 83 18 94 2.0 09/20/16 08:00 Room Air 09/20/16 07:47 37.0 83 18 132/90 94 Room Air 09/20/16 04:00 Nasal Cannula 2.0 09/20/16 04:00 36.8 88 20 131/92 98 Room Air 09/20/16 00:00 Nasal Cannula 2.0 09/20/16 00:00 37.5 86 18 112/73 96 Nasal Cannula 2.0 09/19/16 20:53 37.6 97 22 113/78 97 Nasal Cannula 1.0 09/19/16 20:00 Nasal Cannula 2.0 09/19/16 16:35 37.0 93 27 110/80 97 Nasal Cannula 1.0 Meds Administered Last 24 Hrs: Meds Administered (Past 24Hrs) Medications (Trade) Dose Ordered Sig/Coty Route Start Time Stop Time Status Last Admin Dose Admin Olanzapine (Zyprexa Zydis Od Tab) 5 mg HS PO 09/18/16 21:00 09/19/16 09:31 DC 09/18/16 19:47 5 MG Lorazepam (Ativan Inj) 2 mg NOW STAT IV 09/19/16 09:28 09/19/16 09:35 DC 09/19/16 09:36 2 MG Olanzapine (Zyprexa Zydis Od Tab) 5 mg BID PO 09/19/16 21:00 10/19/16 20:59 09/20/16 08:03 5 MG Lorazepam (Ativan Inj) 1 mg TID IV 09/19/16 14:00 09/20/16 13:30 DC 09/19/16 21:17 1 MG Lorazepam (Ativan Inj) 1 mg Q4H PRN IV 09/19/16 11:45 10/19/16 11:44 09/20/16 04:32 1 MG Olanzapine 5 mg 5 mg NOW STAT PO 09/19/16 09:35 09/19/16 09:36 DC 09/19/16 12:21 5 MG Sodium Chloride 1,000 ml @ 75 mls/hr [id number] IV 09/19/16 18:00 10/19/16 17:59 09/20/16 08:02 75 MLS/HR Lorazepam/Syringe (Ativan Inj/ Syringe) 1 ml @ 1 mls/min TID IV 09/20/16 14:00 10/20/16 13:59 09/20/16 13:51 1 MLS/MIN Lab Results Last 24 Hrs: Last 24 Hours Test 09/20/16 05:05 White Blood Count 10.99 K/uL Red Blood Count 4.44 M/uL Hemoglobin 12.8 g/dL Hematocrit 38.8 % Mean Corpuscular Volume 87.4 fL Mean Corpuscular Hemoglobin 28.8 pg Mean Corpuscular Hemoglobin Concent 33.0 g/dl Platelet Count 283 K/uL Mean Platelet Volume 10.2 fL Neutrophils (%) (Auto) 71.8 % Lymphocytes (%) (Auto) 13.6 % Monocytes (%) (Auto) 11.5 % Eosinophils (%) (Auto) 1.2 % Basophils (%) (Auto) 0.3 % Neutrophils # (Auto) 7.90 K/uL Lymphocytes # (Auto) 1.49 K/uL Monocytes # (Auto) 1.26 K/uL Eosinophils # (Auto) 0.13 K/uL Basophils # (Auto) 0.03 K/uL RDW Standard Deviation 46.2 fL RDW Coefficient of Variation 14.5 % Immature Granulocyte % (Auto) 1.6 % Immature Granulocyte # (Auto) 0.18 K/uL Sodium Level 142 mmol/L Potassium Level 3.9 mmol/L Chloride Level 106 mmol/L Carbon Dioxide Level 29 mmol/L Anion Gap 7.0 mmol/L Blood Urea Nitrogen 8 mg/dl Creatinine 0.75 mg/dl Est Creatinine Clear Calc Drug Dose 108.9 ml/min Estimated GFR () 120.5 Estimated GFR (Non- 104.0 BUN/Creatinine Ratio 10.7 Random Glucose 98 mg/dl Calcium Level 8.0 mg/dl Magnesium Level 2.0 mg/dl Total Creatine Kinase 211 U/L
--- NOTE | 2016-09-20 17:20 | Progress Note ---
Internal Med Progress Note Date of Service: Sep 20, 2016. Provider Documentation: SUBJECTIVE: can tell his name but still talking randomly and tangentially afebrile hemodynamics stable OBJECTIVE: Vital Signs-as noted below Exam: General-alert and awake and random talking. agitated.Do not obey commands Neck-no neck masses Lungs-cta b/l no wheezing or crackles Heart-s1 and s2 heard regular rate and rhythm no murmurs Abdomen-soft bowel sounds present non tender no distension Extremities-no erythema no edema Neuro-alert and awake not obeying commands Lab data as noted below. ASSESSMENT & PLAN: Sepsis Likely due to Aspiration Pneumonia The patient met criteria of sepsis on admission, tachycardia, tachypnea Increased white count of 32,000. Was started with intravenous vancomycin, Zosyn and Levaquin Initial POC Lactate 2.9-normalized hemodynamics stable mrsa swab negative will stop vancomycin cx no growth so far leukocytosis improving Seen by Speech and recommends moist purred diet continue iv fluids and iv abx stable Schizophrenia. The patient was on Clozaril but that has been on hold. He has increasing agitation secondary to withdrawal from the medication. appreciate psychiatry inputs started on Zyprexa bid and ativan iv tid continue same and close monitor Recent Hospitalization with Metabolic Encephalopathy Secondary to Drug OD Tobacco use disorder. Gastrointestinal prophylaxis with intravenous Protonix. Comminuted intra-articular fracture of fifth metacarpal was on splint which came off. Consulted ortho and appreciate inputs Deep venous thrombosis prophylaxis with subQ heparin. Code status: He will be a full code. DISPOSITION Transfer to medical floor Vital Signs: Date Time Temp Pulse Resp B/P Pulse Ox O2 Delivery O2 Flow Rate FiO2 09/20/16 15:35 37.3 106 16 144/91 97 Room Air 09/20/16 15:30 97 Room Air 09/20/16 11:21 37.0 88 18 108/71 97 Room Air 09/20/16 11:15 37.0 83 18 94 2.0 09/20/16 08:00 Room Air 09/20/16 07:47 37.0 83 18 132/90 94 Room Air 09/20/16 04:00 Nasal Cannula 2.0 09/20/16 04:00 36.8 88 20 131/92 98 Room Air 09/20/16 00:00 Nasal Cannula 2.0 09/20/16 00:00 37.5 86 18 112/73 96 Nasal Cannula 2.0 1/28/17 20:53 37.6 97 22 113/78 97 Nasal Cannula 1.0 09/19/16 20:00 Nasal Cannula 2.0 Lab Results: Results Past 24 Hours Test 09/20/16 05:05 Range/Units White Blood Count 10.99 4.8-10.8 K/uL Red Blood Count 4.44 4.7-6.1 M/uL Hemoglobin 12.8 14.0-18.0 g/dL Hematocrit 38.8 42-52 % Mean Corpuscular Volume 87.4 80-100 fL Mean Corpuscular Hemoglobin 28.8 25-34 pg Mean Corpuscular Hemoglobin Concent 33.0 32-36 g/dl Platelet Count 283 130-400 K/uL Mean Platelet Volume 10.2 7.4-10.4 fL Neutrophils (%) (Auto) 71.8 % Lymphocytes (%) (Auto) 13.6 % Monocytes (%) (Auto) 11.5 % Eosinophils (%) (Auto) 1.2 % Basophils (%) (Auto) 0.3 % Neutrophils # (Auto) 7.90 1.4-6.5 K/uL Lymphocytes # (Auto) 1.49 1.2-3.4 K/uL Monocytes # (Auto) 1.26 0.11-0.59 K/uL Eosinophils # (Auto) 0.13 0-0.5 K/uL Basophils # (Auto) 0.03 0-0.2 K/uL RDW Standard Deviation 46.2 36.4-46.3 fL RDW Coefficient of Variation 14.5 11.5-14.5 % Immature Granulocyte % (Auto) 1.6 % Immature Granulocyte # (Auto) 0.18 0.00-0.02 K/uL Sodium Level 142 136-145 mmol/L Potassium Level 3.9 3.5-5.1 mmol/L Chloride Level 106 98-107 mmol/L Carbon Dioxide Level 29 21-32 mmol/L Anion Gap 7.0 3-11 mmol/L Blood Urea Nitrogen 8 7-18 mg/dl Creatinine 0.75 0.60-1.40 mg/dl Est Creatinine Clear Calc Drug Dose 108.9 ml/min Estimated GFR () 120.5 Estimated GFR (Non- 104.0 BUN/Creatinine Ratio 10.7 10-20 Random Glucose 98 70-99 mg/dl Calcium Level 8.0 8.5-10.1 mg/dl Magnesium Level 2.0 1.8-2.4 mg/dl Total Creatine Kinase 211 39-308 U/L
[2016-09-21] MEDS: PIPERACILL/TAZOBAC IV 3.375 GM in DEXTROSE 5% 100ML 100 ML IV SCH ×3 (03:52→20:40)
[2016-09-21] MEDS: HEPARIN SOD 5000 UNIT/0.5 ML CARP SQ SCH ×3 (05:21→21:36)
[2016-09-21 06:08] LABS: BASO % 0.1 %; BASO ABS # 0.01 K/uL (0-0.2); COMPLETE YES; EOS % 0.9 %; HEMATOCRIT 35.9 % (42-52); IG% 1.4 %; LYMPH % 13.9 %; LYMPH ABS # 1.43 K/uL (1.2-3.4); MEAN CELL VOLUME 85.9 fL (80-100); MEAN CORPUSCULAR HEMOGLOBIN 28.9 pg (25-34); MEAN CORPUSCULAR HGB CONC 33.7 g/dl (32-36); MEAN PLATELET VOLUME 10.3 fL (7.4-10.4); MONO % 11.8 %; NEUT % 71.9 %; PLATELET COUNT 255 K/uL (130-400); RED BLOOD COUNT 4.18 M/uL (4.7-6.1); WHITE BLOOD COUNT 10.27 K/uL (4.8-10.8)
[2016-09-21 06:17] LABS: BUN/CREATININE RATIO 13.7 (10-20); CALCIUM 7.9 mg/dl (8.5-10.1); CREATININE 0.71 mg/dl (0.60-1.40); MAGNESIUM 1.8 mg/dl (1.8-2.4); POTASSIUM 3.9 mmol/L (3.5-5.1)
[2016-09-21] MEDS: OLANZAPINE ZYDIS 5 MG ORALLY DIS. TAB PO SCH ×2 (08:16→20:41)
[2016-09-21] MEDS: LORAZEPAM INJ 1 MG in SYRINGE 0.5 ML IV SCH ×4 (08:16→20:40)
[2016-09-21 08:22] VITALS: BP 121/80; PULSE 103; TEMP 36.9; O2SAT 94
--- NOTE | 2016-09-21 09:07 | Psychiatric Progress Notes ---
Psychiatric Progress Note Date of Service Sep 21, 2016. Notes ID: Patient reviewed with liaison nurse. Interim progress reviewed. Guards at bedside CC: still rambling speech HPI: transferred to floor, aide feeding patient pureed foods, swallowing without difficulty. Guards report didn't sleep well last pm, chanting this am but less rocking/restlessness. Patient did have sedation yesterday during the day and scheduled Ativan held for sedation. ROS: unable to complete MSE: mute, no eye contact, alert, no restlessness Imp: schizophrenia with catatonia Plan: shift Zyprexa dosing to hs, titrate to 15 mg daily for ongoing psychosis hopefully can begin Ativan taper soon
[2016-09-21] MEDS: SODIUM CHLORIDE 0.9% 1000ML 1,000 ML IV SCH ×2 (09:32→23:23)
[2016-09-21] MEDS: PANTOprazole INJ 40 MG in SYRINGE 0 ML IV SCH (11:18)
[2016-09-21] MEDS: LEVOFLOXACIN / D5W 750 MG in PREMIXED IN D5W 150 ML IV SCH (13:26)
[2016-09-21 15:35] VITALS: BP 113/79; PULSE 98; TEMP 36.6; O2SAT 96
--- NOTE | 2016-09-21 16:05 | Progress Note ---
Internal Med Progress Note Date of Service: Sep 21, 2016. Provider Documentation: SUBJECTIVE: can tell his name and knows he is in hospital but still talking randomly and tangentially afebrile hemodynamics stable eating ok as per nursing staff OBJECTIVE: Vital Signs-as noted below Exam: General-alert and awake and random talking. agitated.Do not obey commands Neck-no neck masses Lungs-cta b/l no wheezing or crackles Heart-s1 and s2 heard regular rate and rhythm no murmurs Abdomen-soft bowel sounds present non tender no distension Extremities-no erythema no edema Neuro-alert and awake not obeying commands Lab data as noted below. ASSESSMENT & PLAN: Sepsis Likely due to Aspiration Pneumonia The patient met criteria of sepsis on admission, tachycardia, tachypnea Increased white count of 32,000. Was started with intravenous vancomycin, Zosyn and Levaquin Initial POC Lactate 2.9-normalized hemodynamics stable mrsa swab negative will stop vancomycin cx no growth so far leukocytosis improving Seen by Speech and recommends moist purred diet continue iv fluids and iv abx for now leukocytosis resolved will change to po abx in am stable Schizophrenia with catatonia. The patient was on Clozaril but that has been on hold. He has increasing agitation secondary to withdrawal from the medication. appreciate psychiatry inputs currently on Zyprexa 15mg q hs and Ativan iv tid continue same and close monitor Recent Hospitalization with Metabolic Encephalopathy Secondary to Drug OD Tobacco use disorder. Gastrointestinal prophylaxis with intravenous Protonix. Comminuted intra-articular fracture of fifth metacarpal was on splint which came off. Consulted ortho and appreciate inputs Deep venous thrombosis prophylaxis with subQ heparin. Code status: He will be a full code. DISPOSITION monitor in medical floor To be determined Vital Signs: Date Time Temp Pulse Resp B/P Pulse Ox O2 Delivery O2 Flow Rate FiO2 09/21/16 15:35 36.6 98 16 113/79 96 Room Air 09/21/16 08:22 36.9 103 18 121/80 94 Room Air 09/21/16 07:59 Room Air 09/20/16 23:45 Room Air 09/20/16 23:17 37.1 103 18 131/79 94 Room Air Lab Results: Results Past 24 Hours Test 09/21/16 05:32 Range/Units White Blood Count 10.27 4.8-10.8 K/uL Red Blood Count 4.18 4.7-6.1 M/uL Hemoglobin 12.1 14.0-18.0 g/dL Hematocrit 35.9 42-52 % Mean Corpuscular Volume 85.9 80-100 fL Mean Corpuscular Hemoglobin 28.9 25-34 pg Mean Corpuscular Hemoglobin Concent 33.7 32-36 g/dl Platelet Count 255 130-400 K/uL Mean Platelet Volume 10.3 7.4-10.4 fL Neutrophils (%) (Auto) 71.9 % Lymphocytes (%) (Auto) 13.9 % Monocytes (%) (Auto) 11.8 % Eosinophils (%) (Auto) 0.9 % Basophils (%) (Auto) 0.1 % Neutrophils # (Auto) 7.39 1.4-6.5 K/uL Lymphocytes # (Auto) 1.43 1.2-3.4 K/uL Monocytes # (Auto) 1.21 0.11-0.59 K/uL Eosinophils # (Auto) 0.09 0-0.5 K/uL Basophils # (Auto) 0.01 0-0.2 K/uL RDW Standard Deviation 43.8 36.4-46.3 fL RDW Coefficient of Variation 14.1 11.5-14.5 % Immature Granulocyte % (Auto) 1.4 % Immature Granulocyte # (Auto) 0.14 0.00-0.02 K/uL Sodium Level 138 136-145 mmol/L Potassium Level 3.9 3.5-5.1 mmol/L Chloride Level 104 98-107 mmol/L Carbon Dioxide Level 25 21-32 mmol/L Anion Gap 9.0 3-11 mmol/L Blood Urea Nitrogen 10 7-18 mg/dl Creatinine 0.71 0.60-1.40 mg/dl Est Creatinine Clear Calc Drug Dose 115.1 ml/min Estimated GFR () 123.3 Estimated GFR (Non- 106.4 BUN/Creatinine Ratio 13.7 10-20 Random Glucose 120 70-99 mg/dl Calcium Level 7.9 8.5-10.1 mg/dl Magnesium Level 1.8 1.8-2.4 mg/dl
[2016-09-21 16:15] VITALS: O2SAT 96
[2016-09-22] MEDS: PIPERACILL/TAZOBAC IV 3.375 GM in DEXTROSE 5% 100ML 100 ML IV SCH ×2 (04:02→11:55)
[2016-09-22 04:40] VITALS: BP 116/77; PULSE 95; TEMP 36.8; O2SAT 99
[2016-09-22 05:41] LABS: BASO % 0.4 %; BASO ABS # 0.03 K/uL (0-0.2); COMPLETE YES; EOS % 1.4 %; HEMATOCRIT 37.6 % (42-52); IG% 1.5 %; LYMPH % 23.1 %; LYMPH ABS # 1.95 K/uL (1.2-3.4); MEAN CELL VOLUME 85.6 fL (80-100); MEAN CORPUSCULAR HEMOGLOBIN 28.5 pg (25-34); MEAN CORPUSCULAR HGB CONC 33.2 g/dl (32-36); MEAN PLATELET VOLUME 9.9 fL (7.4-10.4); MONO % 14.5 %; NEUT % 59.1 %; PLATELET COUNT 255 K/uL (130-400); RED BLOOD COUNT 4.39 M/uL (4.7-6.1); WHITE BLOOD COUNT 8.44 K/uL (4.8-10.8)
[2016-09-22] MEDS: HEPARIN SOD 5000 UNIT/0.5 ML CARP SQ SCH ×3 (05:41→21:34)
[2016-09-22 06:13] LABS: BUN/CREATININE RATIO 13.7 (10-20); CALCIUM 8.1 mg/dl (8.5-10.1); CREATININE 0.71 mg/dl (0.60-1.40); POTASSIUM 3.8 mmol/L (3.5-5.1)
[2016-09-22 07:43] VITALS: BP 117/80; PULSE 94; TEMP 36.5; O2SAT 96
[2016-09-22] MEDS: LORAZEPAM INJ 1 MG in SYRINGE 0.5 ML IV SCH ×3 (09:11→22:25)
[2016-09-22] MEDS: PANTOprazole SOD 40 MG TAB PO SCH (09:11)
[2016-09-22] MEDS: SODIUM CHLORIDE 0.9% 1000ML 1,000 ML IV SCH (12:01)
[2016-09-22] MEDS ORDERED: LEVOFLOXACIN 750 MG TAB PO SCH (14:00)
[2016-09-22 15:20] VITALS: BP 114/78; PULSE 86; TEMP 36.5; O2SAT 96
[2016-09-22 15:45] VITALS: O2SAT 96
--- NOTE | 2016-09-22 16:50 | Progress Note ---
Internal Med Progress Note Date of Service: Sep 22, 2016. Provider Documentation: SUBJECTIVE: today cannot tell his name when asked his name he said he is superman still talking randomly afebrile eating ok OBJECTIVE: Vital Signs-as noted below Exam: General-alert and awake and random talking. agitated.Do not obey commands Neck-no neck masses Lungs-cta b/l no wheezing or crackles Heart-s1 and s2 heard regular rate and rhythm no murmurs Abdomen-soft bowel sounds present non tender no distension Extremities-no erythema no edema Neuro-alert and awake not obeying commands Lab data as noted below. ASSESSMENT & PLAN: Sepsis Likely due to Aspiration Pneumonia The patient met criteria of sepsis on admission, tachycardia, tachypnea Increased white count of 32,000. Was started with intravenous vancomycin, Zosyn and Levaquin Initial POC Lactate 2.9-normalized hemodynamics stable mrsa swab negative will stop vancomycin cx no growth so far leukocytosis improving Seen by Speech and recommends moist purred diet continue iv fluids and iv abx for now leukocytosis resolved changed to po abx stable Schizophrenia with catatonia. The patient was on Clozaril but that has been on hold. He has increasing agitation secondary to withdrawal from the medication. appreciate psychiatry inputs currently on Zyprexa 15mg q hs and Ativan iv tid slow improvement continue same and close monitor Recent Hospitalization with Metabolic Encephalopathy Secondary to Drug OD Tobacco use disorder. Gastrointestinal prophylaxis with intravenous Protonix. Comminuted intra-articular fracture of fifth metacarpal was on splint which came off. Consulted ortho and appreciate inputs Deep venous thrombosis prophylaxis with subQ heparin. Code status: He will be a full code. DISPOSITION monitor in medical floor To be determined Vital Signs: Date Time Temp Pulse Resp B/P Pulse Ox O2 Delivery O2 Flow Rate FiO2 09/22/16 15:45 96 Room Air 09/22/16 15:20 36.5 86 16 114/78 96 Room Air 09/22/16 07:45 Room Air 09/22/16 07:43 36.5 94 18 117/80 96 Room Air 09/22/16 04:40 36.8 95 16 116/77 99 Room Air 09/21/16 23:25 Room Air Lab Results: Results Past 24 Hours Test 09/22/16 05:30 Range/Units White Blood Count 8.44 4.8-10.8 K/uL Red Blood Count 4.39 4.7-6.1 M/uL Hemoglobin 12.5 14.0-18.0 g/dL Hematocrit 37.6 42-52 % Mean Corpuscular Volume 85.6 80-100 fL Mean Corpuscular Hemoglobin 28.5 25-34 pg Mean Corpuscular Hemoglobin Concent 33.2 32-36 g/dl Platelet Count 255 130-400 K/uL Mean Platelet Volume 9.9 7.4-10.4 fL Neutrophils (%) (Auto) 59.1 % Lymphocytes (%) (Auto) 23.1 % Monocytes (%) (Auto) 14.5 % Eosinophils (%) (Auto) 1.4 % Basophils (%) (Auto) 0.4 % Neutrophils # (Auto) 4.99 1.4-6.5 K/uL Lymphocytes # (Auto) 1.95 1.2-3.4 K/uL Monocytes # (Auto) 1.22 0.11-0.59 K/uL Eosinophils # (Auto) 0.12 0-0.5 K/uL Basophils # (Auto) 0.03 0-0.2 K/uL RDW Standard Deviation 44.6 36.4-46.3 fL RDW Coefficient of Variation 14.3 11.5-14.5 % Immature Granulocyte % (Auto) 1.5 % Immature Granulocyte # (Auto) 0.13 0.00-0.02 K/uL Sodium Level 140 136-145 mmol/L Potassium Level 3.8 3.5-5.1 mmol/L Chloride Level 106 98-107 mmol/L Carbon Dioxide Level 25 21-32 mmol/L Anion Gap 9.0 3-11 mmol/L Blood Urea Nitrogen 10 7-18 mg/dl Creatinine 0.71 0.60-1.40 mg/dl Est Creatinine Clear Calc Drug Dose 115.1 ml/min Estimated GFR () 123.3 Estimated GFR (Non- 106.4 BUN/Creatinine Ratio 13.7 10-20 Random Glucose 108 70-99 mg/dl Calcium Level 8.1 8.5-10.1 mg/dl Magnesium Level 2.0 1.8-2.4 mg/dl
[2016-09-22] MEDS: AMOXICILLIN/CLAVULANATE TAB 875 MG TAB PO SCH (18:01)
[2016-09-22] MEDS: OLANZAPINE ZYDIS 5 MG ORALLY DIS. TAB PO SCH (21:08)
[2016-09-22 23:46] VITALS: BP 120/80; PULSE 95; TEMP 37.2; O2SAT 96
[2016-09-23 00:25] VITALS: TEMP 36.4
[2016-09-23] MEDS: SODIUM CHLORIDE 0.9% 1000ML 1,000 ML IV SCH (02:08)
[2016-09-23] MEDS: HEPARIN SOD 5000 UNIT/0.5 ML CARP SQ SCH ×3 (05:41→22:00)
[2016-09-23 06:32] LABS: CREATININE 0.71 mg/dl (0.60-1.40)
[2016-09-23 08:00] VITALS: BP 126/78; PULSE 96; TEMP 36.7; O2SAT 97
[2016-09-23] MEDS: AMOXICILLIN/CLAVULANATE TAB 875 MG TAB PO SCH (08:43)
[2016-09-23] MEDS: PANTOprazole SOD 40 MG TAB PO SCH (08:43)
[2016-09-23] MEDS: LORAZEPAM INJ 1 MG in SYRINGE 0.5 ML IV SCH ×3 (08:44→21:53)
[2016-09-23 15:34] VITALS: BP 129/83; PULSE 101; TEMP 37; O2SAT 98
[2016-09-23 16:15] VITALS: O2SAT 98
--- NOTE | 2016-09-23 17:02 | Progress Note ---
Internal Med Progress Note Date of Service: Sep 23, 2016. Provider Documentation: SUBJECTIVE: still talking randomly which doesn't make any sense eating fine afebrile hemodynamics stable OBJECTIVE: Vital Signs-as noted below Exam: General-alert and awake and random talking. Neck-no neck masses Lungs-cta b/l no wheezing or crackles Heart-s1 and s2 heard regular rate and rhythm no murmurs Abdomen-soft bowel sounds present non tender no distension Extremities-no erythema no edema Neuro-alert and awake not obeying commands Lab data as noted below. ASSESSMENT & PLAN: Sepsis Likely due to Aspiration Pneumonia The patient met criteria of sepsis on admission, tachycardia, tachypnea Increased white count of 32,000. Was started with intravenous vancomycin, Zosyn and Levaquin Initial POC Lactate 2.9-normalized hemodynamics stable mrsa swab negative will stop vancomycin cx no growth so far leukocytosis improving Seen by Speech and recommends moist purred diet continue iv fluids and iv abx for now leukocytosis resolved changed to po abx completed one week of abx stable Schizophrenia with catatonia. The patient was on Clozaril but that has been on hold. He has increasing agitation secondary to withdrawal from the medication. appreciate psychiatry inputs currently on Zyprexa 15mg q hs and Ativan iv tid plan for ativan taper. Recent Hospitalization with Metabolic Encephalopathy Secondary to Drug OD Tobacco use disorder. Gastrointestinal prophylaxis with intravenous Protonix. Comminuted intra-articular fracture of fifth metacarpal was on splint which came off. Consulted ortho and appreciate inputs Deep venous thrombosis prophylaxis with subQ heparin. Code status: He will be a full code. DISPOSITION monitor in medical floor To be determined Vital Signs: Date Time Temp Pulse Resp B/P Pulse Ox O2 Delivery O2 Flow Rate FiO2 09/23/16 15:34 37.0 101 16 129/83 98 Room Air 09/23/16 08:00 Room Air 09/23/16 08:00 36.7 96 18 126/78 97 Room Air 09/23/16 00:25 36.4 09/22/16 23:46 37.2 95 16 120/80 96 Room Air 09/22/16 23:40 Room Air Lab Results: Results Past 24 Hours Test 09/23/16 05:51 Range/Units Creatinine 0.71 0.60-1.40 mg/dl Est Creatinine Clear Calc Drug Dose 115.1 ml/min Estimated GFR () 123.3 Estimated GFR (Non- 106.4
[2016-09-23] MEDS: OLANZAPINE ZYDIS 5 MG ORALLY DIS. TAB PO SCH (21:54)
[2016-09-24 00:47] VITALS: BP 122/85; PULSE 85; TEMP 36.9; O2SAT 97
[2016-09-24] MEDS: HEPARIN SOD 5000 UNIT/0.5 ML CARP SQ SCH ×2 (06:04→14:34)
[2016-09-24 07:28] VITALS: BP 123/85; PULSE 95; TEMP 36.5; O2SAT 98
[2016-09-24 08:47] LABS: BASO % 0.4 %; BASO ABS # 0.02 K/uL (0-0.2); COMPLETE YES; EOS % 2.1 %; HEMATOCRIT 41.3 % (42-52); IG% 1.1 %; LYMPH % 23.7 %; LYMPH ABS # 1.27 K/uL (1.2-3.4); MEAN CORPUSCULAR HEMOGLOBIN 28.3 pg (25-34); MEAN CORPUSCULAR HGB CONC 32.9 g/dl (32-36); MEAN PLATELET VOLUME 9.8 fL (7.4-10.4); NEUT % 47.7 %; PLATELET COUNT 262 K/uL (130-400); WHITE BLOOD COUNT 5.36 K/uL (4.8-10.8)
[2016-09-24 09:15] LABS: BUN/CREATININE RATIO 16.3 (10-20); CALCIUM 8.2 mg/dl (8.5-10.1); CREATININE 0.64 mg/dl (0.60-1.40); POTASSIUM 3.8 mmol/L (3.5-5.1)
[2016-09-24] MEDS: PANTOprazole SOD 40 MG TAB PO SCH (09:16)
[2016-09-24] MEDS: LORAZEPAM INJ 1 MG in SYRINGE 0.5 ML IV SCH (09:16)
[2016-09-24] MEDS ORDERED: ZYPODT5 PO (14:46)
[2016-09-24] MEDS ORDERED: ATV/1 PO ×2 (14:46)
--- NOTE | 2016-09-24 14:48 | Discharge Instructions ---
Discharge Instructions Admission Reason for Admission: Aspiration Pneumonia, Schizophrenia, Sepsis Discharge Discharge Diagnosis / Problem: aspiration pneumonia, sepsis, schizoprenia with catatonia Discharge Goals Goal(s): Decrease discomfort, Improve function Activity Recommendations Activity Limitations: resume your previous activity . Instructions / Follow-Up Instructions / Follow-Up FOLLOWUP WITH FAMILY DOCTOR IN ONE WEEK FOLLOWUP WITH PSYCHIATRY SOON POSSIBLE Current Hospital Diet Patient's current hospital diet: Regular Diet Discharge Diet Recommended Diet: Regular Diet Diet Texture: Dental Soft (bite-sized) Pending Studies Studies pending at discharge: no Medical Emergencies . Who to Call and When: Medical Emergencies: If at any time you feel your situation is an emergency, please call 911 immediately. . Non-Emergent Contact Non-Emergency issues call your: Primary Care Provider . . "Provider Documentation" section prepared by Kendrick Del Rio. VTE Core Measure Inpt VTE Proph given/why not?: Unfractionated heparin SQ
[2016-09-24] MEDS ORDERED: OLAN15TA2 PO (14:50)
[2016-09-24 15:12] VITALS: BP 105/72; PULSE 100; TEMP 36.8; O2SAT 98
[2016-09-24 15:55] VITALS: BP 105/72; PULSE 100; TEMP 36.8; O2SAT 98
--- NOTE | 2016-09-24 18:59 | Progress Note ---
Internal Med Progress Note Date of Service: Sep 24, 2016. Provider Documentation: SUBJECTIVE: still talking randomly but seems to make some sense today can tell his name today eating ok afebrile hemodynamics stable OBJECTIVE: Vital Signs-as noted below Exam: General-alert and awake and random talking. Neck-no neck masses Lungs-cta b/l no wheezing or crackles Heart-s1 and s2 heard regular rate and rhythm no murmurs Abdomen-soft bowel sounds present non tender no distension Extremities-no erythema no edema Neuro-alert and awake not obeying commands Lab data as noted below. ASSESSMENT & PLAN: Sepsis Likely due to Aspiration Pneumonia The patient met criteria of sepsis on admission, tachycardia, tachypnea Increased white count of 32,000. Was started with intravenous vancomycin, Zosyn and Levaquin Initial POC Lactate 2.9-normalized hemodynamics stable mrsa swab negative will stop vancomycin cx no growth so far leukocytosis improving Seen by Speech and recommends moist purred diet continue iv fluids and iv abx for now leukocytosis resolved changed to po abx completed one week of abx stable Schizophrenia with catatonia. The patient was on Clozaril but that has been on hold. He has increasing agitation secondary to withdrawal from the medication. appreciate psychiatry inputs currently on Zyprexa 15mg q hs and Ativan iv tid plan for ativan taper[facility]. discharged on Zyprexa and po Ativan Recent Hospitalization with Metabolic Encephalopathy Secondary to Drug OD Tobacco use disorder. Gastrointestinal prophylaxis with intravenous Protonix. Comminuted intra-articular fracture of fifth metacarpal was on splint which came off. Consulted ortho and appreciate inputs discharged Vital Signs: Date Time Temp Pulse Resp B/P Pulse Ox O2 Delivery O2 Flow Rate FiO2 09/24/16 15:55 36.8 100 17 98 Room Air 09/24/16 15:46 Room Air 09/24/16 15:12 36.8 100 17 105/72 98 Room Air 09/24/16 08:05 Room Air 09/24/16 07:28 36.5 95 15 123/85 98 Room Air 09/24/16 00:47 36.9 85 15 122/85 97 Room Air 09/24/16 00:40 Room Air Lab Results: Results Past 24 Hours Test 09/24/16 08:35 Range/Units White Blood Count 5.36 4.8-10.8 K/uL Red Blood Count 4.80 4.7-6.1 M/uL Hemoglobin 13.6 14.0-18.0 g/dL Hematocrit 41.3 42-52 % Mean Corpuscular Volume 86.0 80-100 fL Mean Corpuscular Hemoglobin 28.3 25-34 pg Mean Corpuscular Hemoglobin Concent 32.9 32-36 g/dl Platelet Count 262 130-400 K/uL Mean Platelet Volume 9.8 7.4-10.4 fL Neutrophils (%) (Auto) 47.7 % Lymphocytes (%) (Auto) 23.7 % Monocytes (%) (Auto) 25.0 % Eosinophils (%) (Auto) 2.1 % Basophils (%) (Auto) 0.4 % Neutrophils # (Auto) 2.56 1.4-6.5 K/uL Lymphocytes # (Auto) 1.27 1.2-3.4 K/uL Monocytes # (Auto) 1.34 0.11-0.59 K/uL Eosinophils # (Auto) 0.11 0-0.5 K/uL Basophils # (Auto) 0.02 0-0.2 K/uL RDW Standard Deviation 44.8 36.4-46.3 fL RDW Coefficient of Variation 14.6 11.5-14.5 % Immature Granulocyte % (Auto) 1.1 % Immature Granulocyte # (Auto) 0.06 0.00-0.02 K/uL Sodium Level 142 136-145 mmol/L Potassium Level 3.8 3.5-5.1 mmol/L Chloride Level 107 98-107 mmol/L Carbon Dioxide Level 26 21-32 mmol/L Anion Gap 9.0 3-11 mmol/L Blood Urea Nitrogen 10 7-18 mg/dl Creatinine 0.64 0.60-1.40 mg/dl Est Creatinine Clear Calc Drug Dose 127.7 ml/min Estimated GFR () 128.7 Estimated GFR (Non- 111.0 BUN/Creatinine Ratio 16.3 10-20 Random Glucose 106 70-99 mg/dl Calcium Level 8.2 8.5-10.1 mg/dl
--- NOTE | 2016-09-25 20:40 | Discharge Summary ---
Discharge Summary Admission Date: Sep 16, 2016 at 15:35 Discharge Date: Sep 24, 2016 Discharge Disposition: Home Principal Diagnosis: SEPSIS ASPIRATION PNEUMONIA SCHIZOPHRENIA WITH CATATONIA Secondary Diagnoses/Problems: schizophrenia, tobacco use disorder Procedures: CXR: Interval development of interstitial thickening and patchy bilateral opacities, right greater than left. The findings favor an infectious process. Pulmonary edema could appear similar although is considered less likely. LEFT HAND XRAY: Comminuted fracture involving the fifth metacarpal neck and shaft. There has been slight interval increase in the displacement of the fracture fragments, and there is now evidence for widening of the fifth metacarpal phalangeal joint. Consultations: PSYCHIATRY ORTHOPEDICS Medication Reconciliation New Medications: Lorazepam (Ativan) 1 Mg Tab 1 MG PO BID, #30 TAB Lorazepam (Ativan) 1 Mg Tab 1 MG PO Q6H PRN for Anxiety/Agitation, #30 TAB Olanzapine (Zyprexa Zydis Odt) 15 Mg Gely 15 MG PO HS, #30 GELY 1 Refill Continued Medications: Docusate Sodium (Docusate Sodium) 100 Mg Cap 100 MG PO BID Propranolol (Inderal) 10 Mg Tab 10 MG PO BID Discontinued Medications: Clozapine (Clozaril) 100 Mg Tab 100 MG PO BID LAST DOSE 09/11/16 @ 0630 Admission Information HPI (per Admitting provider): He is a 56-year-old male with significant past medical history including schizophrenia and ongoing tobacco use disorder, apparently was in hospital recently from September 09 to September 11. He was admitted with change in mental status and that was thought due to metabolic encephalopathy, complicated by psychiatric medication overuse. The patient has been in the long-term since . During that time, his psychiatric medications have been on hold to prevent probable side effect of medication and since then he has not been eating or drinking enough. He has been getting more agitated at times and sometimes very depressed. Today this morning, he again was agitated and not been eating but he was advised to take food and while he was eating, he had had likely aspiration with increasing shortness of breath and increasing heart rate and decreasing saturation. From that point, he was transferred to [facility] for further evaluation and treatment. In the ER, he was noted to be tachycardic, tachypneic and hypoxia noted in the long-term but not in the ER and his white count was noted to be 32,000 and chest x-ray showed pneumonia involving the right lower lobe. From that point, he received intravenous vancomycin, Zosyn and Levaquin after taking blood culture and he was advised for admission. The patient remained semiresponsive and trying to talk but not making any sense. The history was taken from [facility] at [facility] and also Dr. Crowe, the psychiatrist at [facility]. He has not been taking his medications for schizophrenia and psychosis since he has been discharged from the hospital and he is getting agitated with psychotic behavior since then and not been eating or drinking and then following food today, he ended up with aspiration and was brought into the Emergency Room. Physical Exam (per Admitting): GENERAL: On examination in the Emergency Room, he was alert, awake. He was mumbling, trying to talk but did not make any sense. He was asking for food as well. VITAL SIGNS: Temperature 36.9, pulse was 138, blood pressure 130/100, saturation 96% on 2 liters nasal cannula. HEENT: Unremarkable. NECK: Supple. No JVD, no bruit. CHEST: Decreased breath sounds and bibasilar crackles, right greater than the left. EKG was in sinus rhythm, sinus tachycardia at 137 per minute and nonspecific ST-T wave changes. HEART: S1, S2 regular. No murmur appreciated. ABDOMEN: Soft, benign, mildly tender in the epigastrium. No organomegaly. Bowel sounds present. EXTREMITIES: Negative for any edema. MUSCULOSKELETAL: Examination did not show any acute arthritis involving any joint. CENTRAL NERVOUS SYSTEM: He was alert, awake, and was trying to talk but did not make any sense. He has some psychotic behavior as well Hospital Course Sepsis Likely due to Aspiration Pneumonia The patient met criteria of sepsis on admission, tachycardia, tachypnea Increased white count of 32,000. Was started with intravenous vancomycin, Zosyn and Levaquin Initial POC Lactate 2.9-normalized hemodynamics stable mrsa swab negative will stop vancomycin cx no growth so far leukocytosis improving Seen by Speech and recommends moist purred diet continue iv fluids and iv abx for now leukocytosis resolved changed to po abx completed one week of abx stable Schizophrenia with catatonia. The patient was on Clozaril but that has been on hold. He has increasing agitation secondary to withdrawal from the medication. appreciate psychiatry inputs currently on Zyprexa 15mg q hs and Ativan iv tid plan for ativan taper. d/w at [facility] and was ok to take patient back. discharged on Zyprexa and po Ativan Recent Hospitalization with Metabolic Encephalopathy Secondary to Drug OD Tobacco use disorder. Gastrointestinal prophylaxis with intravenous Protonix. Comminuted intra-articular fracture of fifth metacarpal was on splint which came off. Consulted ortho and appreciate inputs discharged Total time spent on discharge = 40MINUTES This includes examination of the patient, discharge planning, medication reconciliation, and communication with other providers. Discharge Instructions Discharge Instructions Admission Reason for Admission: Aspiration Pneumonia, Schizophrenia, Sepsis Discharge Discharge Diagnosis / Problem: aspiration pneumonia, sepsis, schizoprenia with catatonia Discharge Goals Goal(s): Decrease discomfort, Improve function Activity Recommendations Activity Limitations: resume your previous activity . Instructions / Follow-Up Instructions / Follow-Up FOLLOWUP WITH FAMILY DOCTOR IN ONE WEEK FOLLOWUP WITH PSYCHIATRY SOON POSSIBLE Current Hospital Diet Patient's current hospital diet: Regular Diet Discharge Diet Recommended Diet: Regular Diet Diet Texture: Dental Soft (bite-sized) Pending Studies Studies pending at discharge: no Medical Emergencies . Who to Call and When: Medical Emergencies: If at any time you feel your situation is an emergency, please call 911 immediately. . Non-Emergent Contact Non-Emergency issues call your: Primary Care Provider . . "Provider Documentation" section prepared by Kendrick Del Rio. VTE Core Measure Inpt VTE Proph given/why not?: Unfractionated heparin SQ
== END 2016-09-24 17:30 | disposition home or self-care (01) | DRG 871 ==
LOC: ENRESERVTM → ENRESERVDT → EDBD 11:56 → C.EDB 11:59 → C.2E 15:35 → C.MSW 09-20 12:02
PROVIDERS: ADMIT Internal Medicine; ATTEND Internal Medicine
DX: A41.9 Sepsis, unspecified organism (principal); J69.0 Pneumonitis due to inhalation of food and vomit; F20.2 Catatonic schizophrenia; F17.210 Nicotine dependence, cigarettes, uncomplicated; Z88.8 Allergy status to other drugs, medicaments and biological substances; S62.337D Displaced fracture of neck of fifth metacarpal bone, left hand, subsequent encounter for fracture with routine healing; X58.XXXD Exposure to other specified factors, subsequent encounter